=== PATIENT | female | born 1960 | race Caucasian/White ===

== ENCOUNTER 2023-05-29 08:29 | Observation (INO) ==
--- NOTE | 2023-05-12 09:18 | Anesthesiology Consultation ---
Date of Service May 12, 2023 Assessment & Plan (1) Encounter for pre-operative examination: - Check BSG AM DOS - Infectious disease screening: Per assessment on 05/12/23: No known infectious disease contacts or current infectious disease symptoms. No noted recent Covid positive test result. - Preop testing: No recent CBC/EKG. Will order CBC + EKG for DOS. Chart Review Chart Review: Acceptable Risk for Surgery (pending preop testing DOS) and Patient NOT seen in Pre Admission Testing History Surgery Operation Date: 05/29/23 09:50 Proposed Procedures p Robotic Supracevical Hysterectomy, Laparoscopic Sacrocolpopexy and Cystoscopy - Jonathan Gannon MD s Mid-Urethral Sling - Jonathan Gannon MD Height/Weight Height: 5 ft 4 in Weight: 63.503 kg Allergies Allergy/AdvReac Type Severity Reaction Status Date / Time bee venom protein (honey bee) Allergy Mild Rash Verified 05/12/23 07:35 ibuprofen AdvReac Mild Itching Verified 05/12/23 07:28 Medications Home Medications Medication Instructions Recorded Confirmed Last Taken ezetimibe 10 mg tablet 10 mg PO QPM 05/12/23 05/12/23 Unknown levothyroxine 88 mcg capsule 88 mcg PO QAM 05/12/23 05/12/23 Unknown Past Medical History Medical History Female bladder prolapse History of COVID-19 (~2022) x2- symptoms resolved Hx of colonic polyp Hyperlipemia Hypothyroidism Prediabetes Per [facility] PCP records Prolapsed uterus Past Surgical History Surgical History History of arthroplasty of right shoulder Hx of arthroscopy of right knee Hx of colonoscopy with polypectomy Social History Smoking Status: Former smoker Smoking cigarettes per day: 1 PP/Week Do You Dip or Chew Tobacco: No Smoking End Date: quit 40 years ago Hx Alcohol Use: Yes Alcohol type: wine alcohol intake frequency: a few times a month Hx Substance Use: No substance use type: does not use Testing Laboratory Results 04/25/23 SODIUM 143 POTASSIUM 4.6 CHLORIDE 106 CO2 27 BUN 17 CREATININE 0.8 GLUCOSE 92 HGBA1C 5.7% TSH 0.82 Stress Test Date: 05/30/20 Type: exercise The treadmill exercise test was normal. Was normal exercise heart rate and blood pressure response without symptoms or EKG evidence of ischemia. 8.3 METS. 95% MPHR.
--- NOTE | 2023-05-29 04:57 | History & Physical Report ---
Date of Service May 29, 2023 Assessment & Plan (1) Uterovaginal prolapse, incomplete: Plan: Patient is not interested in usp pessary therapy and desires robotic hysterectomy BSO, sacral colpopexy, cystoscopy and possible sling. Risks of infection, bleeding, injury, pain, mesh exposure, urinary retention, urinary incontinence, laparotomy were discussed. All questions answered. Informed consent signed. Present on Admission?: Yes Admission and Anticipated Discharge Date Admission Date: 05/29/2023 Anticipated date of discharge: 05/30/23 History of Present Illness Chief Complaint: Uterovaginal prolapse Primary Care Provider: NO PCP Angélica Hammer is a 62 year old woman who complains of a vaginal bulge for the past year. The bulge is more noticeable after being on her feet for long periods of time or when exercising. Allergies Allergy/AdvReac Type Severity Reaction Status Date / Time bee venom protein (honey bee) Allergy Mild Rash Verified 05/12/23 07:35 ibuprofen AdvReac Mild Itching Verified 05/12/23 07:28 Home Medications Medication Instructions Recorded Confirmed Type ezetimibe 10 mg tablet 10 mg PO QPM 05/12/23 05/12/23 History levothyroxine 88 mcg capsule 88 mcg PO QAM 05/12/23 05/12/23 History Past Med/Surg History Medical History (Updated 05/29/23 @ 04:55 by Jonathan Gannon MD) Uterovaginal prolapse, incomplete Prediabetes Per [facility] PCP records Prolapsed uterus Female bladder prolapse Hx of colonic polyp History of COVID-19 (~2022) x2- symptoms resolved Hyperlipemia Hypothyroidism Surgical History Hx of colonoscopy with polypectomy History of arthroplasty of right shoulder Hx of arthroscopy of right knee Social History Smoking Status: Former smoker Tobacco Type: Cigarettes Cigarettes Per Day: 1 PP/Week; Smoking End Date: quit 40 years ago; Second Hand Exposure: No; Do You Dip or Chew Tobacco: No; Tobacco Cessation Education Requested by Patient: No Hx Alcohol Use: Yes Alcohol type: wine Hx Substance Use: No Preferred Language: Finnish Communication Ability: Effective Medical Management Specialist Required: No Beliefs That Will Affect Care: None Current Living Situation: Spouse Other Information That Helps Us Care for You: No Feels Safe at Home: Yes Safety Concerns: Feels Safe At This Time Assistive Devices: Glasses Review of Systems Review of Systems: All systems reviewed & are unremarkable except as noted in HPI & below Physical Exam Constitutional: WD/WN, vitals as above Eyes: PERRL, conjunctivae normal, anicteric sclerae Neck: trachea midline, no thyromegaly Respiratory: normal respiratory effort, lungs clear to auscultation Cardiovascular: RRR, no murmur, no edema Gastrointestinal (Abdomen): normal bowel sounds, soft, nontender, no hepatosplenomegaly Musculoskeletal: no cyanosis or clubbing, extremities motor strength 5/5 Skin: no rashes, warm and dry Psychiatric: A+Ox3, euthymic affect Code Status & VTE Plan VTE Prophylaxis Plan VTE Prophylaxis will be ordered: Yes Reason for no VTE drug order: Treatment not indicated
[2023-05-29 09:21] LABS: Basophils # (auto) 0.05 K/uL (0.00-0.20); Basophils % (auto) 0.9 %; Eosinophils % (auto) 1.7 %; Hematocrit (blood only) 44.2 % (37.0-47.0); Hemoglobin 14.3 g/dl (12.0-16.0); Immature Granulocytes # (auto) 0.01 K/uL (0.01-0.20); Immature Granulocytes % (auto) 0.2 %; Lymphocytes # (auto) 2.29 K/uL (1.20-3.40); Lymphocytes % (auto) 39.1 %; Mean Corpuscular Hemoglobin 28.2 pg (25.0-34.0); Mean Corpuscular Hgb Conc 32.4 g/dL (32.0-36.0); Mean Corpuscular Volume 87.2 fL (80.0-100.0); Mean Platelet Volume 9.4 fL (9.4-12.4); Monocytes # (auto) 0.46 K/uL (0.11-0.59); Monocytes % (auto) 7.9 %; Neutrophils # (auto) 2.94 K/uL (1.40-6.50); Neutrophils % (auto) 50.2 %; Platelet Count 233 K/uL (130-400); RDW Coefficient of Variation 14.6 % (11.5-14.5); RDW Standard Deviation 46.5 fL (36.4-46.3); Red Blood Count 5.07 M/uL (4.20-5.40); White Blood Count 5.85 K/ul (4.8-10.8)
[2023-05-29] MEDS: LR 15ML/HR IV SCH (09:24)
[2023-05-29] MEDS ORDERED: MIDAZOLAM HCL 1 MG/ML 2ML VIAL ONE (09:24)
[2023-05-29] MEDS ORDERED: DEXAMETHASONE SOD INJ 4 MG/ML VIAL ONE (09:25)
[2023-05-29] MEDS ORDERED: LIDOCAINE 2% 2 ML VIAL/AMP(20MG/ML) INFIL ONE (09:25)
[2023-05-29] MEDS ORDERED: PROPOFOL IV EMULSION 10 MG/ML 20 ML VIAL IV ONE (09:25)
[2023-05-29] MEDS ORDERED: ROCURONIUM BROMIDE 10 MG/ML 5 ML VIAL IV ONE (09:25)
[2023-05-29] MEDS ORDERED: fentaNYL citrate PF 100 MCG/2 ML VIAL ONE (09:25)
[2023-05-29] MEDS ORDERED: ONDANSETRON INJ 2 MG/ML 2 ML VIAL ONE ×2 (09:25→09:42)
[2023-05-29] MEDS ORDERED: SUGAMMADEX SODIUM 200 MG/2 ML VIAL IV ONE (09:28)
[2023-05-29] MEDS ORDERED: fentaNYL citrate PF 100 MCG/2 ML VIAL IV PRN (10:02)
[2023-05-29] MEDS ORDERED: HYDROmorphone INJ 2 MG/ML SYR/VIAL IV PRN (10:02)
[2023-05-29] MEDS ORDERED: ePHEDrine sulfate 50 MG/ML AMP IV PRN (10:02)
[2023-05-29] MEDS ORDERED: PROMETHAZINE HCL 6.25 MG in SODIUM CHLORIDE 0.9% 50 ML IV PRN (10:02)
[2023-05-29] MEDS ORDERED: ONDANSETRON INJ 2 MG/ML 2 ML VIAL IV PRN ×2 (10:02→14:23)
[2023-05-29] MEDS ORDERED: ATROPINE SULFATE 0.1 MG/ML 10ML SYR IV PRN (10:02)
[2023-05-29] MEDS: metroNIDAZOLE 500 MG/100 ML BAG IV SCH ×2 (10:04→20:33)
[2023-05-29] MEDS ORDERED: ACETAMINOPHEN 1000 MG/100 ML IV IV ONE (10:57)
[2023-05-29] MEDS: ceFAZolin 2000MG 2,000 MG/15 ML SYR IV SCH ×2 (11:15→19:32)
[2023-05-29] MEDS: PREMARIN VAG CRM 14 APPLN/30 GM TUBE ONE (11:59)
[2023-05-29] MEDS: BUPIVACAINE 0.5 % 5 MG/1 ML MPF 30ML VIAL ONE (11:59)
[2023-05-29] MEDS: TISSEEL FIBRIN SEALANT 10ML TOP ONE (14:00)
--- NOTE | 2023-05-29 14:20 | Operative Report ---
Post Operative Report Pre & Post Diagnosis Operation Date: 05/29/23 10:10 Pre-Op Diagnosis: Uterovaginal Prolapse Post-Op Diagnosis: Uterovaginal Prolapse I identified the patient and participated in the time-out.: Yes Procedure Operation Date: 05/29/23 10:10 Actual Procedures p Robotic laparoscopic removal of the uterus, cervix, bilateral fallopian tubes and ovaries with Robotic SacroColpopexy and Cystoscopy(Not Applicable) - Jonathan Gannon MD Surgeon Jonathan Gannon MD Apprentice Embalmer Jessica Sanderson PA-C Estimated Blood Loss 150 Findings Consistent with Post-Op Diagnosis Grade 2 uterine prolapse, grade 2 cystocele. Normal appearing cervix, uterus, tubes and ovaries. Normal cystoscopy with excellent efflux of ureters bilaterally. Fluids crystalloid Specimens cervix,uterus, tubes and ovaries Drains Reyes catheter Anesthesia Type General Complications none Disposition Accompanied Patient To Recovery: Yes Disposition: Recovery Room Indications symptomatic uterovaginal prolapse Description of Procedure After Angélica Hammer was correctly identified in the preoperative area, the indications, risks, benefits, and alternative therapies were discussed in detail. All questions answered. Informed consent was obtained. The patient was then taken to the operating room and general anesthesia was given by anesthesia service. The patient was placed in Davi stirrups and was prepped and draped in the usual sterile fashion. Time out was performed. A Reyes catheter was placed. The cervix was serially dilated and a medium V-care uterine manipulator was applied. At the umbilicus, an 8 mm incision was made. An 8 mm robotic trocar with Optiview was advanced through the incision, through the fascia and inserted into the abdominal cavity under direct visualization. The abdomen was insufflated. On the left, two 8 mm trocars were placed. On the right, two 8 mm trocars were placed. Patient was placed in Trendelenburg position. The robot was docked. The right IP ligament was vessel sealed and transected. The right round ligament was vessel sealed and transected. The bladder flap was developed. The uterine arteries were skeletonized, vessel sealed, and transected. The left IP ligament was vessel sealed and transected. The left round ligament was vessel sealed and transected. The bladder flap was developed. The uterine arteries were skeletonized, vessel sealed, and transected. The colpotomy incision was made by following the edges of the cervical cup. The cervix, uterus, tubes, and ovaries were delivered out the vagina and sent to pathology as specimen. The vaginal cuff was closed with 0 V- lock delayed absorbable suture in two layers. Excellent hemostasis was noted. The bladder was dissected off the anterior vaginal wall for 6 cm. The rectum was dissected off the posterior vaginal wall for 8 cm. Peritoneum was incised over the sacral promontory and extended along the right lalo-colic gutter with excellent visualization of the ureter and sigmoid. There was some bleeding from the middle sacral artery that was controlled with bipolar cautery. Excellent hemostasis was noted. The Y-mesh was secured to the posterior vaginal wall with 6 interrupted sutures of CV-3 Raymond-nata suture. The anterior leaf of the Y-mesh was secured to the anterior vaginal wall with 6 interrupted sutures of CV-3 Raymond-nata. The tail end of the Y mesh was sutured to the anterior longitudinal ligament just below the sacral promontory with two interrupted sutures of CV-0 Raymond-nata sutures. Tisseel was applied to the pedicles, anterior and posterior vaginal guerra and the sacrum. The peritoneum was closed over the mesh with 2-0 V-lock suture. Excellent hemostasis was noted. The robot was undocked. The trocars were removed, the gas was released. The incisions were closed with 4-0 Monocryl in a subcuticular fashion and glued with Dermabond. Cystoscopy was performed which confirmed a normal bladder dome, trigone, and urethra. Excellent efflux of ureters were demonstrated bilaterally. With 250 ml of irrigation fluid in the bladder, a Crede maneuver was performed which did not demonstrate any SYLVESTER. The bladder was drained. A Reyes catheter was inserted. All sponge, lap, and needle counts were correct. Patient was awakened, extubated, and sent to recovery room in good condition. I attest to the content of the Intraoperative Record and any orders documented therein. Any exceptions are noted below. No qualified resident was available. Jessica Sanderson PA-C was needed for patient positioning, draping, retraction, irrigation, robot docking, robotic instrument exchange, incision closure.
[2023-05-29] MEDS ORDERED: IBUPROFEN 600 MG TAB PO PRN (14:23)
[2023-05-29] MEDS ORDERED: oxyCODONE/ACETAMINOPHEN 5mg/325mg TAB PO PRN ×2 (14:23)
[2023-05-29] MEDS: LIDOCAINE 1%/EPINEPHRINE 1:100,000 20 ML VIAL ONE (14:35)
--- NOTE | 2023-05-29 15:01 | Anesthesiology Progress Note ---
Date of Service May 29, 2023 Anesthesia Post Procedure Vital Signs Vital Signs: Temp Pulse Pulse Resp BP Pulse Ox O2 Del Method 05/29/23 14:55 51 L 12 86/54 L 93 Room Air 05/29/23 14:45 51 L 15 96/51 L 97 Oxymask 05/29/23 14:35 53 L 19 92/58 L 94 Oxymask 05/29/23 14:25 36 C L 54 L 14 106/60 93 Oxymask 05/29/23 09:05 36.6 C 64 20 141/80 H 100 Room Air O2 Flow Rate 05/29/23 14:55 05/29/23 14:45 5 05/29/23 14:35 5 05/29/23 14:25 5 05/29/23 09:05 Transfer of Care Handoff Completed per policy Notes Mental Status: alert / awake / arousable and participated in evaluation Patient Amnestic to Procedure: Yes Nausea / Vomiting: adequately controlled Pain: adequately controlled Airway Patency, RR, SpO2: stable & adequate BP & HR: stable & adequate Hydration State: stable & adequate Anesthetic Complications: no major complications apparent
[2023-05-29] MEDS: ARTIFICIAL TEARS OPB PRN (19:07)
--- OUTSIDE RECORDS SUMMARY | 2023-05-30 02:53 | External Medical Summary ---
Author Name Unknown Address Unknown Organization [id number]:[facility] [place] [address] [facility] [id number] Laboratory Report Ordering Provider Test Date Status BATSHEVA HERNANDEZ 04/25/2023 08:17:03 Final Observation Date Value Abnormality Reference (Units ) Status HbA1C 04/25/2023 08:17:03 5.7 Above high normal 4. 0-5.6 (%) Final The use of HbA1c to monitor glycemic status is based on normal hemoglobin and HbA composition. This test should not be used in patients with abnormal hemoglobin that affects the half life of the red blood cell or the in vivo glycation rates. Glucose, estimated average 04/25/2023 08:17:03 117 <126 (mg/dL) Final Performing Location [facility] [place] [address] [facility] [address]
--- OUTSIDE RECORDS SUMMARY | 2023-05-30 02:53 | External Medical Summary | Summary of Care ---
Author Name Unknown Organization [facility] Address [address] [place] [address] Phone [phone] Care Team Providers Care Cuff Folder Name Role Phone Sylvester Arce MD Primary Care Provider [phone] Reason for Visit * Reason Comments Outpatient Testing Encounter Details Date Type Department Care Team (Late st Contact Info) Description 04/25/2023 8:20 AM EDT Laboratory Laboratory, [address] [address] [place], Lab [address] [place] [id number] Hypothyroidism; Hypertension goal BP (blood pressure) < 140/90; DYSLIPIDEMIA, GOAL TO BE DETERMINED; Prediabetes Allergies Active Allergy Reactions Criticality Noted Date Comments Bee Stings Edema airway High 12/24/2009 Ibuprofen 07/29/2004 itching Ragweed Wheezing 12/24/2009 documented as of this encounter (statuses as of 04/25/2023) Medications Medication Sig Dispensed Refills Start Date End Date Status EpiPen 2-Josiah 0.3 MG/0.3ML Injection Solution Auto-injector Inject into a large muscle. 0 Active Hydrocortisone (Perianal) 2.5 % External Cream (Anusol-HC) Administer into the rectum 2 times a day. 30 g 1 07/14/2022 Active Additional Information Patient not taking.Reported on 01/22/2023 TobraDex 0.3-0.1 % Ophthalmic Ointment (Tobramycin-Dexamet hasone) Instill into the left eye 3 times a day. 0 Active Premarin 0.625 MG/GM Vaginal Cream (Estrogens Conjugated)Indicati ons:Vaginal atrophy Administer 1 g into the vagina once a day on Thursday, Thursday, and Thursday only. At bedtime 42.5 g 6 11/05/2022 Active Pravastatin Sodium 40 MG Oral Tablet (Pravachol) TAKE 1 TABLET BY MOUTH EVERY DAY WITH DINNER 90 Tablet 1 02/03/2023 Active Levothyroxine Sodium 88 MCG Oral Tablet (Levoxyl) TAKE 1 TABLET BY MOUTH EVERY DAY ON AN EMPTY STOMACH 90 Tablet 0 02/10/2023 Active Omeprazole 20 MG Oral Capsule Delayed Release (PriLOSEC)Indicatio ns:Gastroesophageal reflux disease, unspecified whether esophagitis present Take 1 Capsule by mouth in the morning. 1 hour before the first meal of the day. 90 Capsule 3 02/16/2023 Active documented as of this encounter (statuses as of 04/25/2023) Active Problems Problem Noted Date Diagnosed Date Synovitis of left knee 04/03/2022 DJD (degenerative joint disease) 04/03/2022 Gastroesophageal reflux disease 04/03/2022 Hip pain, right 04/03/2022 Impingement syndrome of right shoulder Instability of right knee joint 04/03/2022 Osteoarthritis of right hip 04/03/2022 Tear of lateral meniscus of right knee, current 04/03/2022 Prediabetes 04/03/2022 Active advance directive 05/12/2017 Varicose veins of lower extremity 01/15/2017 Vitamin D deficiency 11/04/2016 Generalized osteoarthritis 10/30/2014 Hypothyroidism 10/30/2014 Closed dislocation of patella 07/16/2009 DYSLIPIDEMIA, GOAL TO BE DETERMINED 01/24/2009 Overview: Per Lipid Taxonomy. Allergic rhinitis Overview: summer/fall ROUTINE MEDICAL EXAM Tubal ligation status Overview: Raynaud's syndrome documented as of this encounter (statuses as of 04/25/2023) Resolved Problems Problem Noted Date Diagnosed Date Resolved Date PURE HYPERCHOLESTEROLEM 01/09 Overview: Per Lipid Taxonomy. documented as of this encounter (statuses as of 04/25/2023) Social History Tobacco Use Types Packs/Day Years Used Date Smoking Tobacco: Former Cigarettes 5 4 0 03/12/1976 - 03/12/1980 Smokeless Tobacco: Never Alcohol Use Standard Drinks/Week Comments Yes 0 (1 standard drink = 0.6 oz pur e alcohol) occasionally PHQ-2 Answer Date Recorded PHQ Adult Total Score 0 04/03/2022 Hunger Vital Sign Answer Date Recorded Within the past 12 months, y ou worried that your food would run out before you got the money to buy more. Never true 07/15/19 Within the past 12 months, t he food you bought just didn't last and you didn't have money to get more. Never true 07/14/2022 Sex and Gender Information Value Date Recorded Sex Assigned at Female 03/10/2022 3:26 PM EST Gender Identity Female 03/10/2022 3:26 PM EST Sexual Orientation Straight 04/03/2022 9: 38 AM EST Job Start Date Occupation Industry Not on file Not on file Not on file documented as of this encounter Plan of Treatment Upcoming Encounters Date Type Department Care Team (Late st Contact Info) Description 04/28/2023 1:20 PM EDT Office Visit [facility] [address] [place] [address] Eugenia Santillan CRNP [address] [place] [phone] 05/26/2023 11:05 AM EDT Office Visit Urogynecology [facility] [address] [place] [address] Pau Fernandes CRNP [address] [place] [phone] Nurse Aimee Underwood [address] [facility] [address] 06/10/2023 8:00 AM EDT Telemedicine Urogynecology [address] [place] [address] Jonathan Gannon MD [address] [place] [address] 07/01/2023 1:30 PM EDT Office Visit [facility]rogynecology [facility] [address] [place] [address] Jonathan Gannon MD [address] [place] [address] Health Maintenance Due Date Last Done Comments HIV Screening 1973 Hepatitis C Screening 1976 DTaP,Tdap,and Td Vaccines (1 - Tdap) 1977 Cologuard 11/17/2003 Sigmoidoscopy 11/17/2003 Zoster Vaccines (1 of 2) 2008 Fecal Occult Blood Test 12/24/2010 12/25/19 10, 07/26/2008, 05/24/2007 COVID-19 Vaccine ( - 2022- season) 2022 Influenza Vaccine (FLU shot) (#1) 2022 HbA1c 03/25/2023 03/25/2022 TSH 03/25/2023 03/25/2022, 0803/2021, 03/06/2021, Additional history exists Depression Screening 04/03/2023 04/03/2022 Mammogram 03/12/2024 03/12/2023, 02/09, 03/12/2020, Additional history exists Pap Smear 07/14/2025 07/14/2022, 04/10, 12/24/2009, Additional history exists Lipid Panel 03/25/2027 03/25/2022, 11/11, 09/10/2021, Additional history exists Cervical Cancer Screening 07/15/2027 HPV/Co-Test 07/15/2027 07/14/2022 Colonoscopy 07/02/2032 07/02/2022, 07/02/2022 Colorectal Cancer Screening 07/02/2032 GARDASIL-HPV IMMUNIZATION SERIES Aged Out No longer eligible based on patient's age to complete this topic Hepatitis B Aged Out No longer eligi ble based on patient's age to complete this topic MENINGOCOCCAL (MENACTRA/MENVEO) Aged Out No longer eligible based on patient's age to complete this topic Pneumococcal Vaccine: Pediatrics (0 to 5 Years) and At-Risk Patients (6 to 64 Years) Aged Out No longer eligible based on patient's age to complete this topic documented as of this encounter Medical Devices Not on filedocumented as of this encounter Visit Diagnoses Diagnosis Hypothyroidism Unspecified hypothyroidism Hypertension goal BP (blood pressure) < 140/90 Unspecified essential hypertension DYSLIPIDEMIA, GOAL TO BE DETERMINED Other and unspecified hyperlipidemia Prediabetes Other abnormal glucose documented in this encounter Care Teams Cuff Folder Relationship Specialty Start Date End Date Sylvester Arce MD [address] [place] [id number] PCP - General Family Medicine 04/03/22 documented as of this encounter
--- OUTSIDE RECORDS SUMMARY | 2023-05-30 02:53 | External Medical Summary | Summary of Care ---
Author Name Unknown Organization [facility] Address [address] [place] [address] Phone [phone] Care Team Providers Care Assistant Grocery Store Manager Name Role Phone Sylvester Arce MD Primary Care Provider [phone] Reason for Visit * Reason Onset Date Comments Health Maintenance 05/04/2023 Encounter Details Date Type Department Care Team (Late st Contact Info) Description 05/04/2023 Telephone [facility] [address] [place], [place] [phone] Sylvester Arce MD [address] [place] [place], [place] [phone] Health Maintenance Allergies Active Allergy Reactions Criticality Noted Date Comments Bee Stings Edema airway High 12/24/2009 Ibuprofen 07/29/2004 itching Ragweed Wheezing 12/24/2009 documented as of this encounter (statuses as of 05/04/2023) Medications Medication Sig Dispensed Refills Start Date End Date Status EpiPen 2-Josiah 0.3 MG/0.3ML Injection Solution Auto-injector Inject into a large muscle. 0 Active Premarin 0.625 MG/GM Vaginal Cream (Estrogens Conjugated)Indication s:Vaginal atrophy Administer 1 g into the vagina once a day on Thursday, Thursday, and Thursday only. At bedtime 42.5 g 6 11/05/2022 Active Levothyroxine Sodium 88 MCG Oral Tablet (Levoxyl) TAKE 1 TABLET BY MOUTH EVERY DAY ON AN EMPTY STOMACH 90 Tablet 0 02/10/2023 Active Omeprazole 20 MG Oral Capsule Delayed Release (PriLOSEC)Indications :Gastroesophageal reflux disease, unspecified whether esophagitis present Take 1 Capsule by mouth in the morning. 1 hour before the first meal of the day. 90 Capsule 3 02/16/2023 Active Ezetimibe 10 MG Oral Tablet (Zetia)Indications:Ro utine history and physical examination of adult,Mixed hyperlipidemia Take 1 Tablet by mouth every afternoon. 90 Tablet 3 04/28/2023 Active documented as of this encounter (statuses as of 05/04/2023) Active Problems Problem Noted Date Diagnosed Date [...] as of this encounter (statuses as of 05/04/2023) Resolved Problems Problem Noted Date Diagnosed Date Resolved Date PURE HYPERCHOLESTEROLEM 01/09 Overview: Per Lipid Taxonomy. documented as of this encounter (statuses as of 05/04/2023) Social History Tobacco Use Types Packs/Day Years [...] on file documented as of this encounter Miscellaneous Notes * Telephone Encounter - Erica Palomares LPN - 05/04/2023 2:10 PM EDT Care Gaps Comprehensive Care Outreach Last Office/Telemedicine Visit: 04/28/2023 (in office), Visit date not found (telemedicine) Next Office Visit: Visit date not found 11/17/23 amigo Hemoglobin AIC Results: Lab Results Component Value Date/Time HEMOGLOBIN A1C - [facility] 5.7 (H) 04/25/2023 08:17 AM HEMOGLOBIN A1C - [facility] 5.8 (H) 03/25/2022 10:11 AM BP Readings from Last 1 Encounters: 04/28/23 122/74 Reviewed Health Maintenance below: Health Maintenance Topic Date Due Care Gap Outreach Action Taken: Outreach not indicated documented in this encounter Plan of Treatment Upcoming Encounters Date Type Department Care Team (Late st Contact Info) Description 05/26/2023 11:05 AM EDT [facility] [address] [facility] [address] Pau Fernandes CRNP [address] [place] [phone] Nurse Aimee Underwood [address] [facility] [place] [address] 06/10/2023 8:00 AM EDT Telemedicine Urogynecology [facility] [address] [place] [address] Jonathan Gannon MD [address] [place] [address] 07/01/2023 1:30 PM EDT Office Visit [facility]gynecology [facility] [address] [facility] [place] [address] Jonathan Gannon MD [address] [place] [address] 11/17/2023 10:00 AM EDT Office Visit [address] [address] Eugenia Santillan CRNP [address] [place] [phone] Health Maintenance Due Date Last Done Comments HIV Screening 1975 Hepatitis C Screening 1976 DTaP,Tdap,and Td Vaccines (1 - Tdap) 1977 Cologuard 11/17/2003 Sigmoidoscopy 11/17/2003 Zoster Vaccines (1 of 2) 2008 Fecal Occult Blood Test 12/24/2010 12/25/19 10, 07/26/2008, 05/24/2007 COVID-19 Vaccine ( - 2022- season) 2022 Influenza Vaccine (FLU shot) (#1) 2022 Depression Screening 04/03/2023 04/03/2022 Mammogram 03/12/2024 03/12/2023, 02/09, 03/12/2020, Additional history exists HbA1c 04/24/2024 04/25/2023, 03/25/2022 TSH 04/24/2024 04/25/2023, 03/12, 09/10/2021, Additional history exists Pap Smear 07/14/2025 07/14/2022, 04/10, 12/24/2009, Additional history exists Cervical Cancer Screening 07/15/2027 HPV/Co-Test 07/15/2027 07/14/2022 Lipid Panel 04/24/2028 04/25/2023, 03/12, 12/09/2021, Additional history exists Colonoscopy 07/02/2032 07/02/2022, 07/02/2022 Colorectal Cancer Screening [...] Not on filedocumented as of this encounter Care Teams Assistant Grocery Store Manager Relationship Specialty Start Date End Date Sylvester Arce MD [address] [place] [phone] PCP - General Family Medicine 04/03/22 documented as of this encounter
--- OUTSIDE RECORDS SUMMARY | 2023-05-30 02:53 | External Medical Summary ---
Author Name Unknown Address Unknown Organization [id number]:[facility] [address] [place] [address] Laboratory Report Ordering Provider Test Date Status BATSHEVA HERNANDEZ 04/25/2023 08:17:03 Final Observation Date Value Abnormality Reference (Units ) Status BUN 04/25/2023 08:17:03 17 6-20 (mg/dL) Final Creatinine 04/25/2023 08:17:03 0.8 0.5-1.0 (mg/dL) Final Glomerular filtration rate/1.73 sq M.predicted [Volume Rate/Area] in Serum, Plasma or Blood by Creatinine-based formula (CKD-EPI) 04/25/2023 08:17:03 86 >=60 (mL/min) Final eGFR is calculated based on the CKD-EPI 2020 equation SODIUM 04/25/2023 08:17:03 143 135-146 (m mol/L) Final Potassium 04/25/2023 08:17:03 4.6 3.5-5.1 (m mol/L) Final Cl 04/25/2023 08:17:03 106 98-107 (mm ol/L) Final CO2 04/25/2023 08:17:03 27 22-32 (mmo l/L) Final Anion gap 04/25/2023 08:17:03 10 7-15 (mmol /L) Final Glucose 04/25/2023 08:17:03 92 70-120 (mg /dL) Final Calcium 04/25/2023 08:17:03 9.2 8.4-10.2 ( mg/dL) Final Performing Location [facility]ORY [address] [place] [address]
--- OUTSIDE RECORDS SUMMARY | 2023-05-30 02:53 | External Medical Summary | Summary of Care ---
Author Name Unknown Organization [facility] Address [address] [place] [address] Phone [phone] Care Team Providers Care Demand Planning Analyst Name Role Phone Sylvester Herman MD Primary Care Provider [phone] Reason for Visit * Reason Comments eRx-Medication Refill Encounter Details Date Type Department Care Team (Late st Contact Info) Description 05/11/2023 Refill [facility] [address], [place] [phone] Sylvester Herman MD [address], [place] [phone] Allergies Active Allergy Reactions Criticality Noted Date Comments Bee Stings Edema airway High 12/24/2009 Ibuprofen 07/29/2004 itching Ragweed Wheezing 12/24/2009 documented as of this encounter (statuses as of 05/11/2023) Medications Medication Sig Dispensed Refills Start Date End Date Status EpiPen 2-Josiah 0.3 MG/0.3ML Injection Solution Auto-injector Inject into a large muscle. 0 Active Premarin 0.625 MG/GM Vaginal Cream (Estrogens Conjugated)Indicati ons:Vaginal atrophy Administer 1 g into the vagina once a day on Thursday, Thursday, and Thursday only. At bedtime 42.5 g 6 3 Active Omeprazole 20 MG Oral Capsule Delayed Release (PriLOSEC)Indicatio ns:Gastroesophageal reflux disease, unspecified whether esophagitis present Take 1 Capsule by mouth in the morning. 1 hour before the first meal of the day. 90 Capsule 3 4 Active Ezetimibe 10 MG Oral Tablet (Zetia)Indications: Routine history and physical examination of adult,Mixed hyperlipidemia Take 1 Tablet by mouth every afternoon. 90 Tablet 3 4 Active Levothyroxine Sodium 88 MCG Oral Tablet (Levoxyl) TAKE 1 TABLET BY MOUTH EVERY DAY ON AN EMPTY STOMACH 90 Tablet 3 4 Active Levothyroxine Sodium 88 MCG Oral Tablet (Levoxyl) TAKE 1 TABLET BY MOUTH EVERY DAY ON AN EMPTY STOMACH 90 Tablet 0 4 05/11/19 24 Discontinued documented as of this encounter (statuses as of 05/11/2023) Active Problems Problem Noted Date Diagnosed Date Synovitis of left knee 04/03/2022 DJD (degenerative joint disease) 04/03/2022 Gastroesophageal reflux disease 04/03/2022 Hip pain, right 04/03/2022 Impingement syndrome of right shoulder 3 Instability of right knee joint 04/03/2022 Osteoarthritis [...] as of this encounter (statuses as of 05/11/2023) Resolved Problems Problem Noted Date Diagnosed Date Resolved Date PURE HYPERCHOLESTEROLEM 01/09 Overview: Per Lipid Taxonomy. documented as of this encounter (statuses as of 05/11/2023) Social History Tobacco Use Types Packs/Day Years [...] encounter Miscellaneous Notes * Telephone Encounter - Sondra Barber [facility] - 05/11/2023 5:03 PM EDTSigned Prescriptions: Disp Refills Levothyroxine Sodium 88 MCG Oral Tablet (L*90 Tab*3 Sig: TAKE 1 TABLET BY MOUTH EVERY DAY ON AN EMPTY STOMACHAuthorizing Provider: Toya HERMAN User: SONDRA BARBER documented in this encounter Plan of Treatment Upcoming Encounters Date Type Department Care Team (Late st Contact Info) Description 05/26/2023 11:05 AM EDT Office Visit Urogynecology [facility] [address] [place] [address] Pau Fernandes CRNP [address] [place] [phone] Nurse Aimee Underwood [address] [place] [address] 06/10/2023 8:00 AM EDT Telemedicine Urogynecology [facility] [address] [place] [address] Jonathan Gannon MD [address] [place] [address] 07/01/2023 1:30 PM EDT Office Visit Urogynecology [facility] [address] [place] [address] Jonathan Gannon MD [address] [place] [address] 11/17/2023 10:00 AM EDT Office Visit [address] [address] Eugenia Santillan CRNP [address] [place] [phone] Health Maintenance Due Date Last Done Comments HIV Screening 1973 Hepatitis C Screening 1976 DTaP,Tdap,and Td Vaccines (1 - Tdap) 1977 Cologuard 11/17/2003 Sigmoidoscopy 11/17/2003 Zoster Vaccines (1 of 2) 2008 Fecal Occult Blood Test 12/24/2010 12/25/19 10, 07/26/2008, 05/24/2007 COVID-19 Vaccine ( - 2022- season) 2022 Depression Screening 04/03/2023 04/03/2022 Influenza Vaccine (FLU shot) (Season Ended) 2023 Mammogram 03/12/2024 03/12/2023, 02/09, 03/12/2020, Additional history [...] filedocumented as of this encounter Care Teams Demand Planning Analyst Relationship Specialty Start Date End Date Sylvester Herman MD [address] [place] [id number] PCP - General Family Medicine 04/03/22 documented as of this encounter
--- OUTSIDE RECORDS SUMMARY | 2023-05-30 02:53 | External Medical Summary | Summary of Care ---
Author Name Unknown Organization [facility] Address [address] [place] [address] Phone [phone] Care Team Providers Care Pit Crane Operator Name Role Phone Sylvester Arce MD Primary Care Provider [phone] Reason for Visit * Reason Onset Date Comments Surgery 04/22/2023 Encounter Details Date Type Department Care Team (Late st Contact Info) Description 04/22/2023 Telephone Urogynecology [facility] [address] [place] [address] Jonathan Gannon MD [address] [place] [address] Surgery Allergies Active Allergy Reactions Criticality Noted Date Comments Bee Stings Edema airway High 12/24/2009 Ibuprofen 07/29/2004 itching Ragweed Wheezing 12/24/2009 documented as of this encounter (statuses as of 04/22/2023) Medications Medication Sig Dispensed Refills Start Date [...] as of this encounter (statuses as of 04/22/2023) Active Problems Problem Noted Date Diagnosed Date [...] as of this encounter (statuses as of 04/22/2023) Resolved Problems Problem Noted Date Diagnosed Date Resolved Date PURE HYPERCHOLESTEROLEM 01/09 Overview: Per Lipid Taxonomy. documented as of this encounter (statuses as of 04/22/2023) Social History Tobacco Use Types Packs/Day Years [...] encounter Miscellaneous Notes * Telephone Encounter - Luz Islas [facility] - 04/22/2023 11:20 AM EDT Pt returning nurses call plans on getting preoperative labs for 05/29/2023 [facility] surgery [facility] Pt is to get BMP, CBC and TSC. Since is having surgery off site - it being told her TSC needs to bedrawn at [facility] - pt asking if all other labs (she has labs for PCP too TSH, Hemoglobin, BMP, Lipid etc) and planned on getting it done on 04/30/2023. Placed call on hold to clarify. Spoke with a provider - pt is ok to get BMP and CBC at [facility] but will need to get TSC at [facility] - since lives further away from where she is having surgery - can do TSC and ABO/RH morning of surgery Routing to Dr Teressa SIRAEL documented in this encounter Plan of Treatment Upcoming Encounters Date Type Department Care Team (Late st Contact Info) Description 04/24/2023 8:20 AM EDT Laboratory Laboratory, [place] [address] [place] [phone] [place] [address], [place] [phone] 04/28/2023 1:20 PM EDT Office Visit Family [facility] [place] [address], [place] [phone] Eugenia Santillan CRNP [address] [place] [phone] 05/26/2023 11:05 AM EDT Office Visit Urogynecology [facility] [address] [place] [address] Pau Fernandes CRNP [address] [place] [phone] Nurse Aimee Underwood [address] [place] [address] 06/10/2023 8:00 AM EDT Telemedicine Urogynecology [facility] [address] [facility] [place] [address] Jonathan Gannon MD [address] [place] [address] 07/01/2023 1:30 PM EDT Office Visit Urogynecology [facility] [address] [place] [address] Jonathan Gannon MD [address] [place], [place] [phone] Health Maintenance Due Date Last Done Comments HIV Screening 1975 Hepatitis C Screening 1976 DTaP,Tdap,and Td Vaccines (1 - Tdap) 1977 Cologuard 11/17/2003 Sigmoidoscopy 11/17/2003 Zoster Vaccines (1 of 2) 2008 Fecal Occult Blood Test 12/24/2010 12/25/19 10, 07/26/2008, 05/24/2007 COVID-19 Vaccine ( season) 2022 Influenza Vaccine (FLU shot) (#1) 2022 HbA1c 03/25/2023 03/25/2022 TSH 03/25/2023 03/25/2022, 08/0 03/2021, 03/06/2021, Additional history exists Depression Screening 04/03/2023 [...] filedocumented as of this encounter Care Teams Pit Crane Operator Relationship Specialty Start Date End Date Sylvester Arce MD [address] [place] [phone] PCP - General Family Medicine 04/03/22 documented as of this encounter
--- OUTSIDE RECORDS SUMMARY | 2023-05-30 02:53 | External Medical Summary ---
Author Name Unknown Address Unknown Organization [id number]:[facility] - [address] [facility] [address] Laboratory Report Ordering Provider Test Date Status BATSHEVA HERNANDEZ 04/25/2023 08:17:03 Final Observation Date Value Abnormality Reference (Units ) Status Triglyceride 04/25/2023 08:17:03 94 <=174 ( mg/dL) Final Triglyceride Reference Range s (mg/dL):
<150 Acceptable
150-174 Borderline high
175-499 High
>=500 Very high Cholesterol 04/25/2023 08:17:03 244 Above high normal <200 (mg/dL) Final Total Cholesterol Reference Ranges (mg/dL):
<200 Desirable
200-239 Borderline high
>=240 High HDL 04/25/2023 08:17:03 94 >49 (mg/dL ) Final HDL Cholesterol Reference Ra nges (mg/dL):
>=60 High (Desirable)
<50 Low (Undesirable) For Females
<40 Low (Undesirable) For Males NON-HDL CHOLESTEROL 04/25/2023 08:17:03 150 <=159 (mg/dL) Final Non-HDL Cholesterol Referenc e Range (mg/dL):
<100 Target level for high risk ASCVD patient
<130 Optimal for general population
130-159 Near optimal for general population
160-189 Borderline High
190-219 High
>=220 Very High LDL, (calculated) 04/25/2023 08:17:03 131 Above high n ormal <=129 (mg/dL) Final LDL Cholesterol Reference Ra nges (mg/dL):
<70 Target level for high risk ASCVD patient
<100 Optimal for general population
100-129 Near optimal for general population
130-159 Borderline high
160-189 High
>=190 Very high Performing Location LAB[facility]ATORY [facility] - [address] [facility] [address]
--- OUTSIDE RECORDS SUMMARY | 2023-05-30 02:53 | External Medical Summary | Summary of Care ---
Author Name Unknown Organization [facility] Address [address] [place] [address] Phone [phone] Care Team Providers Care Insurance Auditor Name Role Phone Sylvester Arce MD Primary Care Provider [phone] Reason for Visit * Reason Comments Physical-Exam 1 yr return , labs c ompleted Encounter Details Date Type Department Care Team (Latest Contact Info) Description 04/28/2023 1:20 PM EDT Office Visit [facility] [address], [place] [id number] Eugenia Santillan [address] [phone] Routine history and physical examination of adult*; Mixed hyperlipidemia; Prediabetes; Acquired hypothyroidism Allergies Active Allergy Reactions Criticality Noted Date Comments Bee Stings Edema airway High 12/24/2009 Ibuprofen 07/29/2004 itching Ragweed Wheezing 12/24/2009 documented as of this encounter (statuses as of 04/28/2023) Medications Medication Sig Dispensed Refills Start Date End Date Status EpiPen 2-Josiah 0.3 MG/0.3ML Injection Solution Auto-injector Inject into a large muscle. 0 Active Premarin 0.625 MG/GM Vaginal Cream (Estrogens Conjugated)Indicat ions:Vaginal atrophy Administer 1 g into the vagina once a day on Thursday, Thursday, and Thursday only. At bedtime 42.5 g 6 3 Active Levothyroxine Sodium 88 MCG Oral Tablet (Levoxyl) TAKE 1 TABLET BY MOUTH EVERY DAY ON AN EMPTY STOMACH 90 Tablet 0 4 Active Omeprazole 20 MG Oral Capsule Delayed Release (PriLOSEC)Indicati ons:Gastroesophage al reflux disease, unspecified whether esophagitis present Take 1 Capsule by mouth in the morning. 1 hour before the first meal of the day. 90 Capsule 3 4 Active Ezetimibe 10 MG Oral Tablet (Zetia)Indications :Routine history and physical examination of adult,Mixed hyperlipidemia Take 1 Tablet by mouth every afternoon. 90 Tablet 3 4 Active Hydrocortisone (Perianal) 2.5 % External Cream (Anusol-HC) Administer into the rectum 2 times a day. 30 g 1 3 04/28/19 24 Discontinued(Me dication List Clean Up) TobraDex 0.3-0.1 % Ophthalmic Ointment (Tobramycin-Dexame thasone) Instill into the left eye 3 times a day. 0 04/28/19 24 Discontinued(Me dication List Clean Up) Pravastatin Sodium 40 MG Oral Tablet (Pravachol) TAKE 1 TABLET BY MOUTH EVERY DAY WITH DINNER 90 Tablet 1 3 04/28/19 24 Discontinued(Me dication List Clean Up) Ezetimibe 10 MG Oral Tablet (Zetia)Indications :Mixed hyperlipidemia Take 1 Tablet by mouth in the morning. 90 Tablet 3 4 04/28/19 24 Discontinued documented as of this encounter (statuses as of 04/28/2023) Active Problems Problem Noted Date Diagnosed Date [...] as of this encounter (statuses as of 04/28/2023) Resolved Problems Problem Noted Date Diagnosed Date Resolved Date PURE HYPERCHOLESTEROLEM 01/09 Overview: Per Lipid Taxonomy. documented as of this encounter (statuses as of 04/28/2023) Social History Tobacco Use Types Packs/Day Years [...] on file documented as of this encounter Last Filed Vital Signs Vital Sign Reading Time Taken Comments Blood Pressure 122/74 04/28/2023 1:13 PM EDT Pulse 74 04/28/2023 1:13 PM EDT Temperature 36.2 C (97.2 F) 04/28/2023 1:13 PM ED T Respiratory Rate 16 04/28/2023 1:13 PM EDT Oxygen Saturation 99% 04/28/2023 1:13 PM EDT Inhaled Oxygen Concentration - - Weight 65.3 kg (144 lb) 04/28/2023 1:13 PM EDT Height 162.6 cm (5' 4") 04/28/2023 1:13 PM EDT Body Mass Index 24.72 04/28/2023 1:13 PM EDT documented in this encounter Progress Notes * Eugenia Santillan CRNP - 04/28/2023 1:48 PM EDT SUBJECTIVE: Angélica Hammer is a 62 year old female that presents for Physical-Exam (1 yr return , labs completed) Last appt: 01/22/2023 Pt presents today for routine follow up, last seen 01/22/2023; Recent Events 14 months ago OPHTHALMOLOGY RAFY RODRIGUEZ with Dr. Suazo (Nonintractable headache, unspecified chronicity pattern, unspecified headache type) FAM PRAC RAFY RODRIGUEZ with YOHAN Lassiter (New onset headache) Here for routine wellness examination. Has questions about her statin medication. Has been getting increased leg cramps - decreased dose to 30mg a day. She would like to discontinue this medication completely. She has been on the 30mg dose for about 2 weeks. Caffeine: 1 cup coffee Smoking: None Vaping: None Etoh: Wine - occasional Drug Use: No Sexually Active: Yes Concern for STD/STI: No Occupation: was warehouse clerk, elder care - overnight care. Health Maintenance Topic Date Due HIV Screening Never done Hepatitis C Screening Never done DTaP,Tdap,and Td Vaccines (1 - Tdap) Never done Zoster Vaccines (1 of 2) Never done Influenza Vaccine (FLU shot) (1) Never done COVID-19 Vaccine ( - 2022- season) Never done Depression Screening 04/03/2023 Mammogram 03/12/2024 HbA1c 04/24/2024 TSH 04/24/2024 Cervical Cancer Screening 07/15/2027 Lipid Panel 04/24/2028 Colorectal Cancer Screening 07/02/2032 Hepatitis B Aged Out MENINGOCOCCAL (MENACTRA/MENVEO) Aged Out GARDASIL-HPV IMMUNIZATION SERIES Aged Out Pneumococcal Vaccine: Pediatrics (0 to 5 Years) and At-Risk Patients (6 to 64 Years) Aged Out Patient Active Problem List Diagnosis Code Allergic rhinitis J30.9 ROUTINE MEDICAL EXAM Z00.00 Tubal ligation status Z98.51 Raynaud's syndrome I73.00 Active advance directive Z78.9 DYSLIPIDEMIA, GOAL TO BE DETERMINED E78.5 Closed dislocation of patella S83.006A Synovitis of left knee M65.9 DJD (degenerative joint disease) M19.90 Gastroesophageal reflux disease K21.9 Generalized osteoarthritis M15.9 Hip pain, right M25.551 Hypothyroidism E03.9 Impingement syndrome of right shoulder M75.41 Instability of right knee joint M25.361 Osteoarthritis of right hip M16.11 Tear of lateral meniscus of right knee, current S83.281A Varicose veins of lower extremity I83.90 Vitamin D deficiency E55.9 Prediabetes R73.03 Current Outpatient Medications Medication Sig Dispense Refill Premarin 0.625 MG/GM Vaginal Cream (Estrogens Conjugated) Administer 1 g into the vagina once a dayon Thursday, Thursday, and Thursday only. At bedtime 42.5 g 6 Pravastatin Sodium 40 MG Oral Tablet (Pravachol) TAKE 1 TABLET BY MOUTH EVERY DAY WITH DINNER 90 Tablet 1 Levothyroxine Sodium 88 MCG Oral Tablet (Levoxyl) TAKE 1 TABLET BY MOUTH EVERY DAY ON AN EMPTY STOMACH 90 Tablet 0 EpiPen 2-Josiah 0.3 MG/0.3ML Injection Solution Auto-injector Inject into a large muscle. Hydrocortisone (Perianal) 2.5 % External Cream (Anusol-HC) Administer into the rectum 2 times a day. (Patient not taking: Reported on 01/22/2023) 30 g 1 TobraDex 0.3-0.1 % Ophthalmic Ointment (Tobramycin-Dexamethasone) Instill into the left eye 3 timesa day. (Patient not taking: Reported on 10/15/2022) Omeprazole 20 MG Oral Capsule Delayed Release (PriLOSEC) Take 1 Capsule by mouth in the morning. 1 hour before the first meal of the day. 90 Capsule 3 No current facility-administered medications for this visit. Review of patient's allergies indicates: Allergen Reactions Bee Stings Edema airway Ibuprofen itching Ragweed Wheezing OBJECTIVE: Estimated body mass index is 24.72 kg/m as calculated from the following: Height as of this encounter: 1.626 m (5' 4"). Weight as of this encounter: 65.3 kg (144 lb). Vitals: 04/28/23 1313 Temp: 36.2 C (97.2 F) Pulse: 74 Resp: 16 SpO2: 99% BP: 122/74 BMI: 24.71 BP Readings from Last 3 Encounters: 04/28/23 122/74 01/22/23 120/70 07/14/22 118/76 Wt Readings from Last 3 Encounters: 04/28/23 65.3 kg (144 lb) 01/22/23 66 kg (145 lb 9.6 oz) 10/15/22 63.5 kg (140 lb) Physical Exam Vitals and nursing note reviewed. Constitutional: General: She is not in acute distress. Appearance: Normal appearance. She is not ill-appearing, toxic-appearing or diaphoretic. HENT: Head: Normocephalic and atraumatic. Right Ear: Ear canal and external ear normal. Left Ear: Ear canal and external ear normal. Nose: Nose normal. Mouth/Throat: Mouth: Mucous membranes are moist. Eyes: General: Right eye: No discharge. Left eye: No discharge. Pupils: Pupils are equal, round, and reactive to light. Cardiovascular: Rate and Rhythm: Normal rate and regular rhythm. Pulses: Normal pulses. Heart sounds: Normal heart sounds. No murmur heard. Pulmonary: Effort: Pulmonary effort is normal. No respiratory distress. Breath sounds: Normal breath sounds. No stridor. No wheezing or rhonchi. Abdominal: General: Abdomen is flat. There is no distension. Palpations: Abdomen is soft. There is no mass. Tenderness: There is no abdominal tenderness. There is no guarding. Musculoskeletal: General: No swelling or tenderness. Normal range of motion. Cervical back: Normal range of motion. No rigidity or tenderness. Right lower leg: No edema. Left lower leg: No edema. Lymphadenopathy: Cervical: No cervical adenopathy. Skin: General: Skin is warm and dry. Capillary Refill: Capillary refill takes less than 2 seconds. Findings: No bruising or erythema. Neurological: General: No focal deficit present. Mental Status: She is alert and oriented to person, place, and time. Mental status is at baseline. Psychiatric: Mood and Affect: Mood normal. Behavior: Behavior normal. Thought Content: Thought content normal. Judgment: Judgment normal. I have reviewed the following results: CMP, Lipid Panel, Hemoglobin A1C, and TSH ASSESSMENT/PLAN Routine history and physical examination of adult (Primary) - COMPREHENSIVE METABOLIC PANEL; Future; Expected date: 10/29/2023 - Ezetimibe 10 MG Oral Tablet (Zetia); Take 1 Tablet by mouth every afternoon. Mixed hyperlipidemia - LIPID PANEL WITH DIRECT LDL IF TG IS HIGH; Future; Expected date: 10/29/2023 - Ezetimibe 10 MG Oral Tablet (Zetia); Take 1 Tablet by mouth every afternoon. - Patient would like to completely discontinue pravastatin - not willing to dose decrease. - Would like to trial zetia and repeat lipid panel in 6 months. - If cholesterol increases with zetia consider 10mg rosuvastatin or 48mg fenofibrate. - Pt previously on pravastatin 40mg Prediabetes - HEMOGLOBIN A1C; Future; Expected date: 10/29/2023 - Recommending lifestyle modifications. Eat a diet that is high in fruits and vegetables, lean meats, and avoid drinks or foods with added sugar. - [place] [employer] Association recommends exercising daily at least 30 minutes a day five times weekly. Acquired hypothyroidism - TSH WITH FREE T4 IF INDICATED; Future; Expected date: 10/29/2023 Levothyroxine Sodium 88 MCG Oral Tablet (Levoxyl), TAKE 1 TABLET BY MOUTH EVERY DAY ON AN EMPTY STOMACH Chronic, stable. The current medical regimen is effective; continue present plan and medications. Anticipatory Guidance: Discussed below: Adult Anticipatory Guidance Ages 65 years and older: Diet: Nutritional Assessment. A diet that limits fats and sodium. Increase fiber and calcium intake. Recommend a diet high in fruits, vegetables and grains. Exercise: Encouraged regular physical activity as tolerated. Injury Prevention: Fall risk assessments, water temperature settings, domestic violence, smoking near bedding or near [facility], car safety, smoke detector use and replacements. I spent a total of 30-39 minutes (exact time 35 mins) on the date of service in preparation, delivery, and documentation of the care provided to Angélica Hammer excluding any time spent in the performance of separately billed services. Please note: Voice recognition software was used in the dictation of this note. Though I regularly review a progress note when I finish, I sometimes miss global commodity manager errors that might occur in the voice recognition which can result in erroneous words or sometimes odd combinations of words. -- ENZO Prater [place] [address] documented in this encounter Nursing Notes * Deneen Stein LPN - 04/28/2023 1:13 PM EDT Cpe 1 yr return ,labs completed documented in this encounter Plan of Treatment Upcoming Encounters Date Type Department Care Team (Late st Contact Info) Description 05/26/2023 11:05 AM EDT Office Visit Urogynecology [facility] [address] [place] [address] aPu Fernandes CRNP [address] [place] [phone] Nurse Yasmine Urogylucio [address] [place] [address] 06/10/2023 8:00 AM EDT Telemedicine Urogynecology [facility] [address] [place] [address] Jonathan Gannon MD [address] [place] [address] 07/01/2023 1:30 PM EDT Office Visit Urogynecology [facility] [address] [facility] [place] [address] Jonathan Gannon MD [address] [place] [address] 11/17/2023 10:00 AM EDT Office Visit [facility] [address], [place] [id number] Eugenia Santillan CRNP [address] [place] [phone] Scheduled Orders Name Type Priority Associated Diagnoses Orde r Schedule HEMOGLOBIN A1C Lab Routine Prediabetes Expected: 10/29/2023 (Approximate), Expires: 04/27/2024 COMPREHENSIVE METABOLIC PANEL Lab Routine Routine history and physical examination of adult Expected: 10/29/2023 (Approximate), Expires: 04/27/2024 LIPID PANEL WITH DIRECT LDL IF TG IS HIGH Lab Routine Mixed hyperlipidemia Expected: 10/29/2023 (Approximate), Expires: 04/27/2024 TSH WITH FREE T4 IF INDICATED Lab Routine Acquired hypothyroidism Expected: 10/29/2023 (Approximate), Expires: 04/27/2024 Health Maintenance Due Date Last Done Comments HIV Screening 1973 Hepatitis C Screening 1976 DTaP,Tdap,and Td Vaccines (1 - Tdap) 1977 Cologuard 11/17/2003 Sigmoidoscopy 11/17/2003 Zoster Vaccines (1 of 2) 2008 Fecal Occult Blood Test 12/24/2010 12/25/19 10, 07/26/2008, 05/24/2007 COVID-19 Vaccine (1 - season) 2022 Influenza Vaccine (FLU shot) (#1) [...] as of this encounter Visit Diagnoses Diagnosis Routine history and physical examination of adult- Primary Routine general medical examination at a [facility] Mixed hyperlipidemia Prediabetes Other abnormal glucose Acquired hypothyroidism Unspecified hypothyroidism documented in this encounter Care Teams Insurance Auditor Relationship Specialty Start Date End Date Sylvester Arce MD [address] [place] [address] PCP - General Family Medicine 04/03/22 documented as of this encounter
--- OUTSIDE RECORDS SUMMARY | 2023-05-30 02:53 | External Medical Summary ---
Author Name Unknown Address Unknown Organization K01:LABORATORY [facility] - [address] [facility] [address] Laboratory Report Ordering Provider Test Date Status BATSHEVA HERNANDEZ 04/25/2023 08:17:03 Final Observation Date Value Abnormality Reference (Units ) Status TSH 04/25/2023 08:17:03 0.82 0.27-4.20 (uIU/mL) Final Performing Location LABORATORY C - [address] [facility] [address]
--- OUTSIDE RECORDS SUMMARY | 2023-05-30 02:53 | External Medical Summary | Summary of Care ---
Author Name Unknown Organization [facility] Address [address] [place] [address] Phone [phone] Care Team Providers Care Drink Waiter Name Role Phone Sylvester Arce MD Primary Care Provider [phone] Reason for Visit * Reason Comments Pessary Check Encounter Details Date Type Department Care Team (Late st Contact Info) Description 05/26/2023 11:05 AM EDT Office Visit Urogynecology [facility] [address], [place] [phone] Pau Fernandes CRNP [address] [place] [address] Nurse Yasmine Urogyn [address] [place] [address] Uterovaginal prolapse, incomplete*; Vaginal atrophy; Pessary maintenance Allergies Active Allergy Reactions Criticality Noted Date Comments Bee Stings Edema airway High 12/24/2009 Ibuprofen 07/29/2004 itching Ragweed Wheezing 12/24/2009 documented as of this encounter (statuses as of 05/26/2023) Medications Medication Sig Dispensed Refills Start Date End Date Status EpiPen 2-Josiah 0.3 MG/0.3ML Injection Solution Auto-injector Inject into a large muscle. 0 Active Omeprazole 20 MG Oral Capsule Delayed Release (PriLOSEC)Indicatio ns:Gastroesophageal reflux disease, unspecified whether esophagitis present Take 1 Capsule by mouth in the morning. 1 hour before the first meal of the day. 90 Capsule 3 02/16/2023 Active Additional Information Patient not taking.Reported on 05/26/2023 Ezetimibe 10 MG Oral Tablet (Zetia)Indications: Routine history and physical examination of adult,Mixed hyperlipidemia Take 1 Tablet by mouth every afternoon. 90 Tablet 3 04/28/2023 Active Levothyroxine Sodium 88 MCG Oral Tablet (Levoxyl) TAKE 1 TABLET BY MOUTH EVERY DAY ON AN EMPTY STOMACH 90 Tablet 3 05/11/2023 Active Premarin 0.625 MG/GM Vaginal Cream (Estrogens Conjugated)Indicati ons:Vaginal atrophy Administer 1 g into the vagina once a day on Thursday, Thursday, and Thursday only. At bedtime 42.5 g 6 05/27/2023 Active Premarin 0.625 MG/GM Vaginal Cream (Estrogens Conjugated)Indicati ons:Vaginal atrophy Administer 1 g into the vagina once a day on Thursday, Thursday, and Thursday only. At bedtime 42.5 g 6 11/05/2022 4 Discontinu ed(Refill) documented as of this encounter (statuses as of 05/26/2023) Active Problems Problem Noted Date Diagnosed Date [...] as of this encounter (statuses as of 05/26/2023) Resolved Problems Problem Noted Date Diagnosed Date Resolved Date PURE HYPERCHOLESTEROLEM 01/09 Overview: Per Lipid Taxonomy. documented as of this encounter (statuses as of 05/26/2023) Social History Tobacco Use Types Packs/Day Years [...] on file documented as of this encounter Progress Notes * Pau Fernandes, ENZO - 05/26/2023 11:23 AM EDT Angélica Harman presents for a pessary maintenance visit at [facility]. HPI: Patient was previously seen for UVP and SYLVESTER managed with #3 ring with support pessary and vaginal estrogen cream. Interval pessary, surgical repair with Dr. Gannon in May 2023. Pt presents today for pessary removal prior to surgery. She was using the vaginal estrogen cream 2-3 times per week; has not been using over at least the past week, agreeable to restarting. Pessary is comfortable and fitting well. No abnormal discharge, irritation, or vaginal bleeding. She denies urinary urgency, burning with urination, or leaking of urine. Bowels are WNL. She denies excessive fluid intake. Allergies: Review of patient's allergies indicates: Allergen Reactions Bee Stings Edema airway Ibuprofen itching Ragweed Wheezing Active Medications: Current Outpatient Medications Medication Sig Dispense Refill EpiPen 2-Josiah 0.3 MG/0.3ML Injection Solution Auto-injector Inject into a large muscle. Ezetimibe 10 MG Oral Tablet (Zetia) Take 1 Tablet by mouth every afternoon. 90 Tablet 3 Levothyroxine Sodium 88 MCG Oral Tablet (Levoxyl) TAKE 1 TABLET BY MOUTH EVERY DAY ON AN EMPTY STOMACH 90 Tablet 3 [START ON 05/27/2023] Premarin 0.625 MG/GM Vaginal Cream (Estrogens Conjugated) Administer 1 g into the vagina once a day on Thursday, Thursday, and Thursday only. At bedtime 42.5 g 6 Omeprazole 20 MG Oral Capsule Delayed Release (PriLOSEC) Take 1 Capsule by mouth in the morning. 1 hour before the first meal of the day. (Patient not taking: Reported on 05/26/2023) 90 Capsule 3 No current facility-administered medications for this visit. EXAM: GENERAL: Well developed well nourished female in no apparent distress. Alert oriented x3. THYROID: No visible masses/nodules. LUNG: Normal respiratory effort, no audible wheeze,no accessory muscle use CARDIOVASCULAR: No cardiopulmonary distress. No cyanosis or edema NEUROLOGICAL: Normal balance, speech in-tact and appropriate, no obvious focal neurologic deficits PELVIC EXAM: External Genitalia: Atrophic external female genitalia, no visible lesions or irritation Vagina: Atrophic with decreased rugation. No vaginal discharge noted. #3 ring with support pessary removed. Tissue estrogenized with use of vaginal estrogen with no vaginal bleeding, lesions or erosions noted - slight irritation at vaginal apex. Levator ani muscle strength 4 Bimanual: No masses or tenderness. Rectal: perianal area normal, anus normal Impression/Plan: This is a 62 year old female withUVP and SYLVESTER who presents today for pessary removal prior to surgery. Plan of care today includes: Pessary removal prior to surgery per patient F/u with Dr. Gannon Uterovaginal prolapse, incomplete (Primary) Vaginal atrophy - Premarin 0.625 MG/GM Vaginal Cream (Estrogens Conjugated); Administer 1 g into the vagina once a day on Thursday, Thursday, and Thursday only. At bedtime Pessary maintenance Follow Up: Return if symptoms worsen or fail to improve. Education: Continue use of vaginal estrogen cream 2-3x weekly as instructed. Call if any questions, problems or concerns. Total of 20 mins spent on the date of this encounter. Time was spent in pre- charting, face to face counseling, reviewing available lab data and imaging, discussing short-term + long-term management as well as risks and benefits of various therapies, ordering additional tests, and visit documentation. All questions were answered ENZO De León 05/26/2023 documented in this encounter Nursing Notes * Amy Timmons MED ASSIST - 05/26/2023 11:18 AM EDT Patient presents to the clinic today for a pessary check. documented in this encounter Plan of Treatment Upcoming Encounters Date Type Department Care Team (Late st Contact Info) Description 06/10/2023 8:00 AM EDT Telemedicine [facility] [address] [facility] [address] Jonathan [facility] [address] [facility] [address] 07/01/2023 1:30 PM EDT Office Visit [facility] [place] [address] Jonathan Gannon MD [address] [facility] [place] [address] 11/17/2023 10:00 AM EDT Office Visit [facility] [address] [facility] [place] [address] Eugenia Santillan CRNP [address] [place] [phone] Health Maintenance Due Date Last Done Comments HIV Screening 1973 Hepatitis C Screening 1976 DTaP,Tdap,and Td Vaccines (1 - Tdap) 1977 Cologuard 11/17/2003 Sigmoidoscopy 11/17/2003 Zoster Vaccines (1 of 2) 2008 Fecal Occult Blood Test 12/24/2010 12/25/19 10, 07/26/2008, 05/24/2007 COVID-19 Vaccine ( - season) 2022 Depression Screening 04/03/2023 04/03/2022 Influenza [...] as of this encounter Visit Diagnoses Diagnosis Uterovaginal prolapse, incomplete- Primary Vaginal atrophy Postmenopausal atrophic vaginitis Pessary maintenance Fitting and adjustment of other device documented in this encounter Care Teams Drink Waiter Relationship Specialty Start Date End Date Sylvester Arce MD [address] [place] [id number] PCP - General Family Medicine 04/03/22 documented as of this encounter
--- OUTSIDE RECORDS SUMMARY | 2023-05-30 02:54 | External Medical Summary | Summary of Care ---
Author Name Unknown Organization [facility] Address [address] [place] [address] Phone [phone] Care Team Providers Care Market Reporter Name Role Phone Sylvester Herman MD Primary Care Provider [phone] Reason for Visit * Reason Comments eRx-Medication Refill Encounter Details Date Type Department Care Team (Late st Contact Info) Description 02/09/2023 Refill [facility] [address], [place] [phone] Sylvester Herman MD [address], [place] [phone] Allergies Active Allergy Reactions Criticality Noted Date Comments Bee Stings Edema airway High 12/24/2009 Ibuprofen 07/29/2004 itching Ragweed Wheezing 12/24/2009 documented as of this encounter (statuses as of 02/10/2023) Medications Medication Sig Dispensed Refills Start Date End Date Status EpiPen 2-Josiah 0.3 MG/0.3ML Injection Solution Auto-injector Inject into a large muscle. 0 Active Hydrocortisone (Perianal) 2.5 % External Cream (Anusol-HC) Administer into the rectum 2 times a day. 30 g 1 07/14/2022 Active Additional Information Patient not taking.Reported on 01/22/2023 TobraDex 0.3-0.1 % Ophthalmic Ointment (Tobramycin-Dexa methasone) Instill into the left eye 3 times a day. 0 Active Premarin 0.625 MG/GM Vaginal Cream (Estrogens Conjugated)Indic ations:Vaginal atrophy Administer 1 g into the vagina once a day on Thursday, Thursday, and Thursday only. At bedtime 42.5 g 6 11/05/2022 Active Omeprazole 20 MG Oral Capsule Delayed Release (PriLOSEC)Indica tions:Gastroesop hageal reflux disease, unspecified whether esophagitis present Take 1 Capsule by mouth in the morning. 1 hour before the first meal of the day. 30 Capsule 5 01/22/2023 Active Pravastatin Sodium 40 MG Oral Tablet (Pravachol) TAKE 1 TABLET BY MOUTH EVERY DAY WITH DINNER 90 Tablet 1 02/03/2023 Active Levothyroxine Sodium 88 MCG Oral Tablet (Levoxyl) TAKE 1 TABLET BY MOUTH EVERY DAY ON AN EMPTY STOMACH 90 Tablet 0 02/10/2023 Active Levothyroxine Sodium 88 MCG Oral Tablet (Levoxyl) TAKE 1 TABLET BY MOUTH EVERY DAY ON AN EMPTY STOMACH 90 Tablet 1 06/23/2022 4 Discontinued documented as of this encounter (statuses as of 02/10/2023) Active Problems Problem Noted Date Diagnosed Date [...] as of this encounter (statuses as of 02/10/2023) Resolved Problems Problem Noted Date Diagnosed Date Resolved Date PURE HYPERCHOLESTEROLEM 01/09 Overview: Per Lipid Taxonomy. documented as of this encounter (statuses as of 02/10/2023) Social History Tobacco Use Types Packs/Day Years Used Date Smoking Tobacco: Former Cigarettes 5 4 Q uit: 03/12/1980 Smokeless Tobacco: Never Alcohol Use Standard [...] encounter Miscellaneous Notes * Telephone Encounter - Kimberley Barrera RPh - 02/10/2023 4:09 PM ESTSigned Prescriptions: Disp Refills Levothyroxine Sodium 88 MCG Oral Tablet (L*90 Tab*0 Sig: TAKE 1 TABLET BY MOUTH EVERY DAY ON AN EMPTY STOMACHAuthorizing Provider: Toya HERMAN User: GERALD BARRERA * Telephone Encounter - Kimberley Barrera RPh - 02/10/2023 4:08 PM EST RX authorized. Zero refills given until upcoming lab appointment 04/24/23. Thanks, Kimberley Dura, PharmD Clinical Pharmacist [facility] ([facility]) [phone] 02/10/2023, 4:08 PM documented in this encounter Plan of Treatment Upcoming Encounters Date Type Department Care Team (Latest Contact Info) Description 03/12/2023 1:00 PM EST Imaging Radiology Mobile, [facility] [address] [place] [address] 04/24/2023 8:20 AM EDT Laboratory Laboratory, [place] [address] [place] [phone] [place], Lab [address], [place] [phone] 04/28/2023 1:30 PM EDT Office Visit Family [facility], [place] [address], [place] [phone] Eugenia Santillan CRNP [address] [place] [phone] 05/13/2023 2:55 PM EDT Office Visit Urogynecology [facility] [address] [place] [address] Pau Fernandes CRNP [address] [place] [address] Nurse Yasmine Urogyn [address] [place] [address] 05/21/2023 11:15 AM EDT Hospital Encounter OR [facility], Operating Room, [facility] - 4th Floor [address] [place] [address] [place] [address] Jonathan Gannon MD [address] [place] [address] 05/21/2023 11:15 AM EDT - 05/21/2023 3:14 PM EDT Surgery OR [facility], Operating Room, [facility] - 4th Floor [address] [place] [address] Jonathan Gannon MD [address] [place] [address] ROBOTIC LAPAROSCOPIC HYSTERECTOMY REMOVAL TUBES AND OVARIES FOR UTERUS 250GM OR LESS 07/01/2023 1:30 PM EDT Office Visit Urogynecology [facility] [address] [place] [address] Jonathan Gannon MD [address] [place] [address] Scheduled Procedures Name Priority Associated Diagnoses Date/Ti me ROBOTIC LAPAROSCOPIC HYSTERECTOMY REMOVAL TUBES AND OVARIES FOR UTERUS 250GM OR LESS Female stress incontinence Incomplete uterovaginal prolapse 05/21/2023 11:15 AM EDT ROBOTIC LAPAROSCOPY SURGICAL COLPOPEXY Female stress incontinence Incomplete uterovaginal prolapse 05/21/2023 11:15 AM EDT VAGINAL SLING PROCEDURE FOR STRESS INCONTINENCE Female stress incontinence Incomplete uterovaginal prolapse 05/21/2023 11:15 AM EDT CYSTOURETHROSCOPY Female stress incontinence Incomplete uterovaginal prolapse 05/21/2023 11:15 AM EDT Health Maintenance Due Date Last Done Comments COVID-19 Vaccine (#1) 05/18/1961 HIV Screening 1973 Hepatitis C Screening 1976 DTaP,Tdap,and Td Vaccines (1 - Tdap) 1977 Cologuard 11/17/2003 Sigmoidoscopy 11/17/2003 Zoster Vaccines (1 of 2) 2008 Fecal Occult Blood Test 12/24/2010 12/25/19 10, 07/26/2008, 05/24/2007 Influenza Vaccine (FLU shot) (#1) 2022 Mammogram 02/24/2023 02/24/2022, 02/2020, 10/04/2018, Additional history exists HbA1c 03/25/2023 03/25/2022 TSH 03/25/2023 03/25/2022, 080 03/2021, 03/06/2021, Additional history exists Depression Screening 04/03/2023 04/03/2022 Pap Smear 07/14/2025 07/14/2022, 04/10, 12/24/2009, Additional [...] filedocumented as of this encounter Care Teams Market Reporter Relationship Specialty Start Date End Date Sylvester Herman MD [address] [place] [address] PCP - General Family Medicine 04/03/22 documented as of this encounter
--- OUTSIDE RECORDS SUMMARY | 2023-05-30 02:54 | External Medical Summary | Summary of Care ---
Author Name Unknown Organization [facility] Address [address] [place] [address] Phone [phone] Care Team Providers Care Furnace Setter Name Role Phone Sylvester Arce MD Primary Care Provider [phone] Reason for Visit * Reason Onset Date Comments Advice 01/21/2023 Encounter Details Date Type Department Care Team (Late st Contact Info) Description 01/21/2023 Telephone [facility] [address], [place] [phone] Sylvester Arce MD [address], [place] [phone] Advice Allergies Active Allergy Reactions Criticality Noted Date Comments Bee Stings Edema airway High 12/24/2009 Ibuprofen 07/29/2004 itching Ragweed Wheezing 12/24/2009 documented as of this encounter (statuses as of 01/21/2023) Medications Medication Sig Dispensed Refills Start Date End Date Status Levothyroxine Sodium 88 MCG Oral Tablet (Levoxyl) TAKE 1 TABLET BY MOUTH EVERY DAY ON AN EMPTY STOMACH 90 Tablet 1 06/23/2022 Active EpiPen 2-Josiah 0.3 MG/0.3ML Injection Solution Auto-injector Inject into a large muscle. 0 Active Hydrocortisone (Perianal) 2.5 % External Cream (Anusol-HC) Administer into the rectum 2 times a day. 30 g 1 07/14/2022 Active TobraDex 0.3-0.1 % Ophthalmic Ointment (Tobramycin-Dexame thasone) Instill into the left eye 3 times a day. 0 Active Pravastatin Sodium 40 MG Oral Tablet (Pravachol) Take 1 Tablet by mouth daily with dinner. 90 Tablet 0 11/03/2022 02/01/2023 Active Premarin 0.625 MG/GM Vaginal Cream (Estrogens Conjugated)Indicat ions:Vaginal atrophy Administer 1 g into the vagina once a day on Thursday, Thursday, and Thursday only. At bedtime 42.5 g 6 11/05/2022 Active documented as of this encounter (statuses as of 01/21/2023) Active Problems Problem Noted Date Diagnosed Date [...] as of this encounter (statuses as of 01/21/2023) Resolved Problems Problem Noted Date Diagnosed Date Resolved Date PURE HYPERCHOLESTEROLEM 01/09 Overview: Per Lipid Taxonomy. documented as of this encounter (statuses as of 01/21/2023) Social History Tobacco Use Types Packs/Day Years [...] encounter Miscellaneous Notes * Telephone Encounter - Deneen Willson OSA - 01/21/2023 1:19 PM EST Pt scheduled and aware. * Telephone Encounter - Pranav Su OSA - 01/21/2023 10:58 AM EST Pt called in with nausea and sniffles. No Appointments Available Patient declined appointments?: No What Visit Type is needed? Acute If Acute Visit Type is needed, were surrounding clinics offered to patient (Yes/No)? N/A Was patient offered appointments with other available providers (Yes/No)? Yes See Call Details? (Yes or No): No documented in this encounter Plan of Treatment Upcoming Encounters Date Type Department Care Team (Latest Contact Info) Description 01/22/2023 10:20 AM EST Office Visit Family Practice, [place] [address] [place] [address] Eugenia Santillan CRNP [address] [place] [address] 02/10/2023 11:05 AM EST Office Visit Urogynecology [facility] [address] [place] [address] Pau Fernandes CRNP [address] [place] [address] Nurse Aimee Underwood [address] [place] [address] 03/12/2023 1:00 PM EST Imaging Radiology Mobile, [place] [id number] [place] [address] 04/24/2023 8:20 AM EDT Laboratory Laboratory, [place] [address] [place] [phone] [facility] [address] [place] [address] 04/28/2023 12:30 PM EDT Office Visit [facility] [address] [place] [address] Eugenia Santillan CRNP [address] [place] [phone] 05/21/2023 11:15 AM EDT Hospital Encounter OR [facility], Operating Room, [facility] - 4th Floor [address] [place] [address] Jonathan Gannon MD [address] [place] [address] 05/21/2023 11:15 AM EDT - 05/21/2023 3:14 PM EDT Surgery OR [facility], Operating Room, [facility] - 4th Floor [address] [place] [address] Jonathan Gannon MD [address] [place] [address] ROBOTIC LAPAROSCOPIC HYSTERECTOMY REMOVAL TUBES AND OVARIES FOR UTERUS 250GM OR LESS 06/02/2023 8:00 AM EDT Telemedicine Urogynecology [facility] [address] [place] [address] Jonathan Gannon MD [address] [place] [address] 07/01/2023 1:30 PM EDT Office Visit Urogynecology [facility] [address] [place] [address] Jonathan Gannon MD [address] [place] [address] Scheduled Procedures Name Priority Associated Diagnoses Date/Ti [...] 2) 2008 Fecal Occult Blood Test 12/24/2010 12/25/19, 07/26/2008, 05/24/2007 Influenza Vaccine (FLU shot) (#1) [...] filedocumented as of this encounter Care Teams Furnace Setter Relationship Specialty Start Date End Date Sylvester Arce MD [address] [place] [address] PCP - General Family Medicine 04/03/22 documented as of this encounter
--- OUTSIDE RECORDS SUMMARY | 2023-05-30 02:54 | External Medical Summary | Summary of Care ---
Author Name Unknown Organization [facility] [address] [place] [address] Phone [phone] Care Team Providers Care Occupational Therapist'S Assistant Name Role Phone Sylvester Arce MD Primary Care Provider [phone] Reason for Visit * Reason Onset Date Comments Surgery 01/05/2023 Encounter Details Date Type Department Care Team ([facility] st Contact Info) Description 01/05/2023 Telephone Urogynecology [facility] [address], [place] [phone] [place] Nurse Urogyn [address] [place] [address] Surgery Allergies Active Allergy Reactions Criticality Noted Date Comments Bee Stings Edema airway High 12/24/2009 Ibuprofen 07/29/2004 itching Ragweed Wheezing 12/24/2009 documented as of this encounter (statuses as of 01/05/2023) Medications Medication Sig Dispensed Refills Start Date [...] as of this encounter (statuses as of 01/05/2023) Active Problems Problem Noted Date Diagnosed Date [...] as of this encounter (statuses as of 01/05/2023) Resolved Problems Problem Noted Date Diagnosed Date Resolved Date PURE HYPERCHOLESTEROLEM 01/09 Overview: Per Lipid Taxonomy. documented as of this encounter (statuses as of 01/05/2023) Social History Tobacco Use Types Packs/Day Years [...] encounter Miscellaneous Notes * Telephone Encounter - Molly Bo RN - 01/05/2023 2:55 PM EST Returned patients call as she had questions about her upcoming procedures. She thought that they had decided not to do a hysterectomy or a sling procedure. Scheduled a video visit to discuss further. documented in this encounter Plan of Treatment Upcoming Encounters Date Type Department Care Team (Latest Contact Info) Description 01/12/2023 10:40 AM EST Telemedicine Urogynecology [facility] [address] [facility] [place] [address] Jonathan Gannon MD 132 [facility] [place] [address] 02/10/2023 11:05 AM EST [facility] [address] [facility] [address] Pau Fernandes CRNP [address] [place] [address] Nurse Aimee Underwood [address] [place] [facility] [place] [address] 04/24/2023 8:20 AM EDT Laboratory Laboratory, [place] [address] [place] [address] [place], Lab [address] [facility], [place] [phone] 04/28/2023 12:30 PM EDT Office Visit [facility], [place] [address] [place] [address] Eugenia Santillan, [employer] [address] [place] [address] 05/21/2023 11:15 AM EDT Hospital Encounter OR [facility], Operating Room, [facility] - 4th Floor [address] [place] [address] Jonathan Gannon MD [address] [place] [address] 05/21/2023 11:15 AM EDT - 05/21/2023 3:14 PM EDT Surgery OR [facility], Operating Room, [facility] Floor [address] [place] [address] Jonathan Gannon MD [address] [place] [address] ROBOTIC LAPAROSCOPIC HYSTERECTOMY REMOVAL TUBES AND OVARIES FOR UTERUS 250GM OR LESS 06/02/2023 8:00 AM EDT Telemedicine Urogynecology [facility] [address] [place] [address] Jonathan Gannon MD [address] [place] [address] 07/01/2023 1:30 PM EDT Office Visit Urogynecology [facility] [address] [place] [address] Jonathan Gannon MD [address] [place] [address] Scheduled Procedures Name Priority Associated Diagnoses Date/Ti [...] (FLU shot) (#1) 2022 Mammogram 02/24/2023 02/24/2022, 02/0 02/2020, 10/04/2018, Additional history exists HbA1c 03/25/2023 03/25/2022 TSH 03/25/2023 03/25/2022, 08/0 03/2021, 03/06/2021, Additional history exists Depression Screening 04/03/2023 04/03/2022 Pap Smear 07/14/2025 07/14/2022, 03/2 10/2017, 12/24/2009, Additional history exists Lipid Panel 03/25/2027 [...] filedocumented as of this encounter Care Teams Occupational Therapist'S Assistant Relationship Specialty Start Date End Date Sylvester Arce MD [address] [place] [address] PCP - General Family Medicine 04/03/22 documented as of this encounter
--- OUTSIDE RECORDS SUMMARY | 2023-05-30 02:54 | External Medical Summary | Summary of Care ---
Author Name Unknown Organization [facility] Address [address] [place] [address] Phone [phone] Care Team Providers Care Supervisor Electronics Assembly Name Role Phone Sylvester Herman MD Primary Care Provider [phone] Reason for Visit * Reason Comments eRx-Medication Refill Encounter Details Date Type Department Care Team (Late st Contact Info) Description 01/31/2023 Refill [facility] [address], [place] [phone] Sylvester Herman MD [address], [place] [phone] Allergies Active Allergy Reactions Criticality Noted Date Comments Bee Stings Edema airway High 12/24/2009 Ibuprofen 07/29/2004 itching Ragweed Wheezing 12/24/2009 documented as of this encounter (statuses as of 02/03/2023) Medications Medication Sig Dispensed Refills Start Date End Date Status Levothyroxine Sodium 88 MCG Oral Tablet (Levoxyl) TAKE 1 TABLET BY MOUTH EVERY DAY ON AN EMPTY STOMACH 90 Tablet 1 06/23/2022 Active EpiPen 2-Ojsiah 0.3 MG/0.3ML Injection Solution Auto-injector Inject into [...] WITH DINNER 90 Tablet 1 02/03/2023 Active Pravastatin Sodium 40 MG Oral Tablet (Pravachol) Take 1 Tablet by mouth daily with dinner. 90 Tablet 0 11/03/2022 3 Discontinued documented as of this encounter (statuses as of 02/03/2023) Active Problems Problem Noted Date Diagnosed Date [...] as of this encounter (statuses as of 02/03/2023) Resolved Problems Problem Noted Date Diagnosed Date Resolved Date PURE HYPERCHOLESTEROLEM 01/09 Overview: Per Lipid Taxonomy. documented as of this encounter (statuses as of 02/03/2023) Social History Tobacco Use Types Packs/Day Years [...] encounter Miscellaneous Notes * Telephone Encounter - Richard Molina RPh - 02/03/2023 7:58 AM ESTSigned Prescriptions: Disp Refills Pravastatin Sodium 40 MG Oral Tablet (Prav*90 Tab*1 Sig: TAKE 1 TABLET BY MOUTH EVERY DAY WITH DINNERAuthorizing Provider: Toya HERMAN User: RICHARD MOLINA----- * Telephone Encounter - Richard Molina RPh - 02/03/2023 7:57 AM EST Labs ordered previously Thanks, Shalom Molina, PharmD Clinical Pharmacist [facility] ([facility]) (Formerly Telepharmacy) [phone] 02/03/2023 7:57 AM documented in this encounter Plan of Treatment Upcoming Encounters Date Type Department Care Team (Latest Contact Info) Description 02/10/2023 11:05 AM EST Office Visit Urogynecology [facility] [address] [place] [address] Pau Fernandes CRNP [address] [place] [address] Nurse Aimee Underwood [address] [place] [address] 03/12/2023 1:00 PM EST Imaging Radiology Mobile, [place] [address] [place] [address] 04/24/2023 8:20 AM EDT Laboratory Laboratory, [place] [address] [place] [address] [place], [facility] [address] [place] [address] 04/28/2023 1:30 PM EDT Office Visit [facility] [address] [place] [address] Eugenia Santlilan CRNP [address] [place] [address] 05/21/2023 11:15 AM EDT Hospital Encounter OR [facility], Operating Room, [facility] - 4th Floor [address] [place] [address] [place] [address] Jonathan Gannon MD [address] [place] [address] 05/21/2023 11:15 AM EDT - 05/21/2023 3:14 PM EDT Surgery OR [facility], Operating Room, [facility] - 4th Floor [address] [place] [address] Jonathan Gannon MD [address] [place] [address] ROBOTIC LAPAROSCOPIC HYSTERECTOMY REMOVAL TUBES AND OVARIES FOR UTERUS 250GM OR LESS 07/01/2023 1:30 PM EDT Office Visit Urogynecology [facility] [address] [place] [address] Jonathan Gannon MD [address] [place] [address] Scheduled Procedures Name Priority Associated Diagnoses Date/Ti [...] (FLU shot) (#1) 2022 Mammogram 02/24/2023 02/24/2022, 020 02/2020, 10/04/2018, Additional history exists HbA1c 03/25/2023 [...] filedocumented as of this encounter Care Teams Supervisor Electronics Assembly Relationship Specialty Start Date End Date Sylvester Herman MD [address] [place] [address] PCP - General Family Medicine 04/03/22 documented as of this encounter
--- OUTSIDE RECORDS SUMMARY | 2023-05-30 02:54 | External Medical Summary | Summary of Care ---
Author Name Unknown Organization [facility] Address [address] [place] [address] Phone [phone] Care Team Providers Care Senior Designer Name Role Phone Sylvester Arce MD Primary Care Provider [phone] Reason for Visit * Reason Comments Follow Up Encounter Details Date Type Department Care Team (Late st Contact Info) Description 01/12/2023 10:40 AM EST Telemedicine Urogynecology [facility] [address] [place] [address] Jonathan Gannon MD [address] [place] [address] Uterovaginal prolapse, incomplete*; Cystocele, midline Allergies Active Allergy Reactions Criticality Noted Date Comments Bee Stings Edema airway High 12/24/2009 Ibuprofen 07/29/2004 itching Ragweed Wheezing 12/24/2009 documented as of this encounter (statuses as of 01/12/2023) Medications Medication Sig Dispensed Refills Start Date [...] as of this encounter (statuses as of 01/12/2023) Active Problems Problem Noted Date Diagnosed Date [...] as of this encounter (statuses as of 01/12/2023) Resolved Problems Problem Noted Date Diagnosed Date Resolved Date PURE HYPERCHOLESTEROLEM 01/09 Overview: Per Lipid Taxonomy. documented as of this encounter (statuses as of 01/12/2023) Social History Tobacco Use Types Packs/Day Years [...] as of this encounter Progress Notes * Jonathan Gannon MD - 01/12/2023 10:48 AM EST Angélica Hammer presents for a follow up visit at [facility]Uro[facility]ologic [facility]. Patient location: HOME. I was in a hospital or clinic location. After connecting through televideo,patient was verified with two unique identifiers. Patient (or authorized legal benefits representative) was then informed that this was a Telemedicine visit and being conducted confidentially over secure lines. Methods to assure confidentiality were taken. Patient acknowledged consent and understanding of pr ivacy and security of the Telemedicine visit. The patient agreed to participate. She was previously seen for N81.2 Uterovaginal prolapse, incomplete (primary encounter diagnosis) N81.11 Cystocele, midline Has questions about her upcoming surgery. We reviewed the diagnosis of Cystocele and uterine prolapse at her last visit and planned for robotic hysterectomy, bso, sacral colpopexy, possible sling. Allergies: Review of patient's allergies indicates: Allergen Reactions Bee Stings Edema airway Ibuprofen itching Ragweed Wheezing Active Medications: Current Outpatient Medications Medication Sig Dispense Refill Levothyroxine Sodium 88 MCG Oral Tablet (Levoxyl) TAKE 1 TABLET BY MOUTH EVERY DAY ON AN EMPTY STOMACH 90 Tablet 1 EpiPen 2-Josiah 0.3 MG/0.3ML Injection Solution Auto-injector Inject into a large muscle. Hydrocortisone (Perianal) 2.5 % External Cream (Anusol-HC) Administer into the rectum 2 times a day. 30 g 1 TobraDex 0.3-0.1 % Ophthalmic Ointment (Tobramycin-Dexamethasone) Instill into the left eye 3 timesa day. (Patient not taking: Reported on 10/15/2022) Pravastatin Sodium 40 MG Oral Tablet (Pravachol) Take 1 Tablet by mouth daily with dinner. 90 Tablet 0 Premarin 0.625 MG/GM Vaginal Cream (Estrogens Conjugated) Administer 1 g into the vagina once a dayon Thursday, Thursday, and Thursday only. At bedtime 42.5 g 6 No current facility-administered medications for this visit. ROS: No Change since previous visit Impression: This is a 62 year old with Uterovaginal prolapse, incomplete (Primary) Cystocele, midline We reviewed the diagnosis and options including custodial pessary use vs vaginal hysterectomy and vaginal repair vs robotic hysterectomy and sacral colpopexy. After answering her questions, we confirmed that she desires robotic approach with robotic hysterectomy, bso, sacral colpopexy, cystoscopy. Since using the right pessary, she denies having SYLVESTER. We agreed that the sling is only for occult SYLVESTER. All questions answered. I spent a total of 20 minutes on the date of service in preparation, delivery, and documentation ofthe care provided to Angélica Hammer excluding any time spent in the performance of separately billedservices. Jonathan Gannon MD 01/12/2023 10:56 AM documented in this encounter Plan of Treatment Upcoming Encounters Date Type Department Care Team (Latest Contact Info) Description 02/10/2023 11:05 AM EST Office Visit Urogynecology [facility] [address] [place] [address] Pau Fernandes CRNP [address] [place] [address] Nurse Aimee Underwood [address] [place] [address] 04/24/2023 8:20 AM EDT Laboratory Laboratory, [address] [place] [address] [place], [facility] [address] [facility] [place], [place] [id number] 04/28/2023 12:30 PM EDT Office Visit [facility], [place] [address] [place], [place] [phone] Eugenia Santillan CRNP [address] [place] [address] 05/21/2023 11:15 AM EDT Hospital Encounter OR [facility], Operating Room, [facility] - 4th Floor [address] [place] [address] Jonathan Gannon MD [address] [place] [address] 05/21/2023 11:15 AM EDT - 05/21/2023 3:14 PM EDT Surgery OR [facility], Operating Room, [facility] - [facility] Floor [address] [place] [address] Jonathan Gannon MD [address] [place] [address] ROBOTIC LAPAROSCOPIC HYSTERECTOMY REMOVAL TUBES AND OVARIES FOR UTERUS 250GM OR LESS 06/02/2023 8:00 AM EDT Telemedicine Urogynecology [facility] [address] [place] [address] Jonathan Gannon MD [address] [place] [address] 07/01/2023 1:30 PM EDT Office Visit Urogynecology [facility] [address] [place] [address] Jonathan Gannon MD [address] [place] [address] Scheduled Procedures Name Priority Associated Diagnoses Date/Ti [...] Screening 04/03/2023 04/03/2022 Pap Smear 07/14/2025 07/14/2022, 2 10/2017, 12/24/2009, Additional history exists Lipid Panel [...] Visit Diagnoses Diagnosis Uterovaginal prolapse, incomplete- Primary Cystocele, midline Female stress incontinence Incomplete uterovaginal prolapse Uterovaginal prolapse, incomplete documented in this encounter Care Teams Senior Designer Relationship Specialty Start Date End Date Sylvester Arce MD [address] [place] [address] PCP - General Family Medicine 04/03/22 documented as of this encounter
--- OUTSIDE RECORDS SUMMARY | 2023-05-30 02:54 | External Medical Summary | Summary of Care ---
Author Name Unknown Organization [facility] Address [address] [place] [address] Phone [phone] Care Team Providers Care Chemical Lab Supervisor Name Role Phone Sylvester Arce MD Primary Care Provider [phone] Reason for Visit * Reason Onset Date Comments Order Request 01/05/2023 LabsPt aware lab s and mammogram order placed Encounter Details Date Type Department Care Team (Late st Contact Info) Description 01/05/2023 Telephone [facility] [address] [place], [place] [phone] Sylvester Arce MD [address], [place] [phone] Order Request (Labs/Pt aware labs and mamm... Allergies Active Allergy Reactions Criticality Noted Date [...] encounter Miscellaneous Notes * Telephone Encounter - Michelle Gonzales MED ASSIST - 01/05/2023 10:28 AM EST Made pt aware labs and mammogram order placed * Telephone Encounter - Odette Chen OSA - 01/05/2023 9:31 AM EST An order was requested for this patient. Name of Requesting Provider: Patient Order Requested: Routine labs- previous orders from 04/03/22- patient not coming in until April 2023to have labs done Diagnosis/Reason for Request: Routine If order request is for Mammogram: Is the patient having any breast symptoms? N/A Is there a chance of ? N/A Has the patient had any breast problems in the past? NA What location AND department does the patient wish to have their order completed at? [place] Fax Number, if applicable: N/A Call Back Number: [phone] If the caller is not a current patient, please advise the patient to call their current PCP to havethe order's prior to being seen in our office. The patient was informed that our providers would not order anything (medication, labs, etc.) prior to being seen. documented in this encounter Plan of Treatment Upcoming Encounters Date Type Department Care Team (Latest Contact Info) Description 02/10/2023 11:05 AM EST Office Visit Urogynecology [facility] [address] [place] [address] Pau Fernandes CRNP [address] [place] [phone] Nurse Yasmine Urogyn [address] [place] [address] 04/24/2023 8:20 AM EDT Laboratory Laboratory, [place] [address] [place] [phone] [facility] [address] [place] [id number] 04/28/2023 12:30 PM EDT Office Visit [place] [address], [place] [phone] Eugenia Santillan CRNP [address] [place] [phone] 05/21/2023 11:15 AM EDT Hospital Encounter OR [facility], Operating Room, [facility] - 4th Floor [address] [place] [address] Jonathan Gannon MD [address] [place] [address] 05/21/2023 11:15 AM EDT - 05/21/2023 3:14 PM EDT Surgery OR [facility], Operating Room, [facility] - 4th Floor [address] [place] [address] Jonathan Gannon MD [address] [place] [address] ROBOTIC LAPAROSCOPIC HYSTERECTOMY REMOVAL TUBES AND OVARIES FOR UTERUS 250GM OR LESS 06/02/2023 8:00 AM EDT Telemedicine Urogynecology [facility] [address] [place] [address] Jonathan Gannon MD [address] [place] [address] 07/01/2023 1:30 PM EDT Office Visit Urogynecology [facility] [address] [place] [address] Jonathan Gannon MD [address] [place] [address] Scheduled Orders Name Type Priority Associated Diagnoses Orde r Schedule TSH WITH FREE T4 IF INDICATED Lab Routine Hypothyroidism Expected: 01/05/2023 (Approximate), Expires: 01/05/2024 LIPID PANEL WITH DIRECT LDL IF TG IS HIGH Lab Routine Hypertension goal BP (blood pressure) < 140/90 DYSLIPIDEMIA, GOAL TO BE DETERMINED Expected: 01/05/2023, Expires: 01/06/2024 BASIC METABOLIC PANEL Lab Routine Prediabetes Expected: 01/05/2023 (Approximate), Expires: 01/05/2024 HEMOGLOBIN A1C Lab Routine Prediabetes Expected: 01/05/2023 (Approximate), Expires: 01/05/2024 MAMMOGRAM SCREENING MARIA EUGENIA BILATERAL Medical Imaging Routine Encounter for screening mammogram for breast cancer Expected: 02/04/2023, Expires: 02/05/2024 Scheduled Procedures Name Priority Associated Diagnoses Date/Ti [...] exists HbA1c 03/25/2023 03/25/2022 TSH 03/25/2023 03/25/2022, 03/2021, 03/06/2021, Additional history exists Depression Screening [...] as of this encounter Visit Diagnoses Diagnosis Hypertension goal BP (blood pressure) < 140/90- Primary Unspecified essential hypertension Hypothyroidism Unspecified hypothyroidism Prediabetes Other abnormal glucose DYSLIPIDEMIA, GOAL TO BE DETERMINED Other and unspecified hyperlipidemia Encounter for screening mammogram for breast cancer Female stress incontinence Incomplete uterovaginal prolapse Uterovaginal prolapse, incomplete documented in this encounter Care Teams Chemical Lab Supervisor Relationship Specialty Start Date End Date Sylvester Arce MD [address] [place] [id number] PCP - General Family Medicine 04/03/22 documented as of this encounter
--- OUTSIDE RECORDS SUMMARY | 2023-05-30 02:54 | External Medical Summary | Summary of Care ---
Author Name Unknown Organization [facility] Address [address] [place] [address] Phone [phone] Care Team Providers Care Engraver Block Name Role Phone David Herman MD Primary Care Provider [phone] Reason for Visit * Reason Onset Date Comments Medication Refill 02/16/2023 Encounter Details Date Type Department Care Team (Late st Contact Info) Description 02/16/2023 Refill [facility] [address] [place], [place] [phone] David Herman MD [address] [place], [place] [phone] Gastroesophageal reflux disease, unspecified whether esophagitis present Allergies Active Allergy Reactions Criticality Noted Date Comments Bee Stings Edema airway High 12/24/2009 Ibuprofen 07/29/2004 itching Ragweed Wheezing 12/24/2009 documented as of this encounter (statuses as of 02/16/2023) Medications Medication Sig Dispensed Refills Start Date End Date Status EpiPen 2-Josiah 0.3 MG/0.3ML Injection Solution Auto-injector Inject into a large muscle. 0 Active Hydrocortisone (Perianal) 2.5 % External Cream (Anusol-HC) Administer into the rectum 2 times a day. 30 g 1 07/14/2022 Active Additional Information Patient not taking.Reported on 01/22/2023 TobraDex 0.3-0.1 % Ophthalmic Ointment (Tobramycin-Dexam ethasone) Instill into the left eye 3 times a day. 0 Active Premarin 0.625 MG/GM Vaginal Cream (Estrogens Conjugated)Indica tions:Vaginal atrophy Administer 1 g into the vagina [...] Omeprazole 20 MG Oral Capsule Delayed Release (PriLOSEC)Indicat ions:Gastroesopha geal reflux disease, unspecified whether esophagitis present Take 1 Capsule by mouth in the morning. 1 hour before the first meal of the day. 90 Capsule 3 02/16/2023 Active Omeprazole 20 MG Oral Capsule Delayed Release (PriLOSEC)Indicat ions:Gastroesopha geal reflux disease, unspecified whether esophagitis present Take 1 Capsule by mouth in the morning. 1 hour before the first meal of the day. 30 Capsule 5 01/22/2023 4 Discontinue d(Refill) documented as of this encounter (statuses as of 02/16/2023) Active Problems Problem Noted Date Diagnosed Date [...] as of this encounter (statuses as of 02/16/2023) Resolved Problems Problem Noted Date Diagnosed Date Resolved Date PURE HYPERCHOLESTEROLEM 01/09 Overview: Per Lipid Taxonomy. documented as of this encounter (statuses as of 02/16/2023) Social History Tobacco Use Types Packs/Day Years [...] encounter Miscellaneous Notes * Telephone Encounter - David Herman MD - 02/16/2023 2:26 PM ESTSigned Prescriptions: Disp Refills Omeprazole 20 MG Oral Capsule Delayed Rele*90 Cap*3 Sig: Take 1 Capsule by mouth in the morning. 1 hour before the first meal of the day. Authorizing Provider: DAVID HERMAN * Telephone Encounter - Michelle Gonzales MED ASSIST - 02/16/2023 10:56 AM EST Pharmacy requesting 90 day supply Pending Prescriptions: Disp Refills Omeprazole 20 MG Oral Capsule Delayed Rel*90 Cap*3 Sig: Take 1 Capsule by mouth in the morning. 1 hour before the first meal of the day. Last Visit: 01/22/2023 (in office), Visit date not found (telemedicine) Next Visit: 04/28/2023 Last date the medication was ordered: 01/22/23 Patient Active Problem List Diagnosis Code Allergic [...] I83.90 Vitamin D deficiency E55.9 Prediabetes R73.03 Labs: Lab Results Component Value Date/Time CREATININE - [facility] 0.7 05/15/2018 08:02 PM CREATININE-OUTSIDE LAB 0.8 12/09/2021 09:00 AM Lab Results Component Value Date/Time POTASSIUM - [facility] 4.2 05/15/2018 08:02 PM POTASSIUM-OU[facility]IDE LAB 4.4 12/09/2021 09:00 AM Lab Results Component Value Date/Time TSH - [facility] 0.45 03/25/2022 10:11 AM TSH - [facility] 2.28 04/06/2001 03:28 PM TSH - OUTSIDE LAB 0.42 (L) 03/06/2021 10:02 AM TSH REFLEX - OUTSIDE LAB 0.19 (L) 09/10/2021 08:53 AM Lab Results Component Value Date/Time LDL (DIRECT MEASURE)-OUTSIDE LAB 139 (H) 12/09/2021 09:00 AM LDL (DIRECT MEASURE)-OUTSIDE LAB 153 (H) 09/10/2021 08:53 AM LDL CHOLESTEROL (CALCULATED) - [facility] 139 (H) 03/25/2022 10:11 AM LDL CHOLESTEROL (CALCULATED) - [facility] 118 10/28/1999 08:57 AM Lab Results Component Value Date/Time ALT - [facility] 28 05/15/2018 08:02 PM ALT-OUTSIDE LAB 20 12/09/2021 09:00 AM Hemoglobin AIC Results: Lab Results Component Value Date/Time HEMOGLOBIN A1C - [facility] 5.8 (H) 03/25/2022 10:11 AM documented in this encounter Plan of Treatment Upcoming Encounters Date Type Department Care Team (Latest Contact Info) Description 03/12/2023 1:00 PM EST Imaging Radiology Mobile, [address] [address] 04/24/2023 8:20 AM EDT Laboratory Laboratory, [place] [address] [place] [address] [place], Lab [address] [place] [address] 04/28/2023 1:30 PM EDT Office Visit [facility] [address] [place] [address] Eugenia Santillan CRNP [address] [place] [phone] 05/13/2023 2:55 PM EDT Office Visit Urogynecology [facility] [address] [place] [address] Pau Fernandes CRNP [address] [place] [phone] Nurse Aimee Underwood [address] [place] [address] 05/21/2023 11:15 AM EDT Hospital Encounter [place], Operating Room, [facility] - 4th Floor [address] [place] [address] Jonathan Gannon MD [address] [place] [address] 05/21/2023 11:15 AM EDT - 05/21/2023 3:14 PM EDT Surgery OR [place], Operating Room, [facility] - 4th Floor [address] [place] [address] Jonathan Gannon MD [address] [place] [address] ROBOTIC LAPAROSCOPIC HYSTERECTOMY REMOVAL TUBES AND OVARIES FOR UTERUS 250GM OR LESS 07/01/2023 1:30 PM EDT Office Visit Urogynecology [facility] [address] [place] [address] Jonathan Gannon MD [address] [place] [address] Scheduled Procedures Name Priority Associated Diagnoses Date/Ti [...] as of this encounter Visit Diagnoses Diagnosis Gastroesophageal reflux disease, unspecified whether esophagitis present Female stress incontinence Incomplete uterovaginal prolapse Uterovaginal prolapse, incomplete documented in this encounter Care Teams Engraver Block Relationship Specialty Start Date End Date David Herman MD [address] [place] [id number] PCP - General Family Medicine 04/03/22 documented as of this encounter
--- OUTSIDE RECORDS SUMMARY | 2023-05-30 02:54 | External Medical Summary | Summary of Care ---
Author Name Unknown Organization [facility] Address [address] [place] [address] Phone [phone] Care Team Providers Care Bass Viol Repairer Name Role Phone Sylvester Arce MD Primary Care Provider [phone] Reason for Visit * Reason Comments Pessary Check Encounter Details Date Type Department Care Team (Late st Contact Info) Description 02/10/2023 11:05 AM EST Office Visit Urogynecology [facility] [address], [place] [phone] Pau Fernandes CRNP [address] [place] [address] Nurse Yasmine Urogyn [address] [place] [address] Uterovaginal prolapse, incomplete*; Vaginal atrophy; Pessary maintenance; Stress incontinence Allergies Active Allergy Reactions Criticality Noted Date [...] WITH DINNER 90 Tablet 1 02/03/2023 Active documented as of this encounter (statuses [...] 4 Q uit: 03/12/1980 Smokeless Tobacco: Never Tobacco Cessation:Counseling Given: Not Answered Alcohol Use Standard Drinks/Week Comments Yes 0 [...] Progress Notes * Pau Fernandes, ENZO - 02/10/2023 11:20 AM EST Angélica Harman presents for a pessary maintenance visit at [facility] Urogynecology [facility]. HPI: Patient was previously seen for UVP and SYLVESTER managed with #3 ring with support pessary and vaginal estrogen cream. Interval pessary, surgical repair with Dr. Gannon in May 2023. Pt reports she is doingwell overall. She is using the vaginal estrogen cream 2-3 times per week. Pessary is comfortable and fitting well. No [...] Solution Auto-injector Inject into a large muscle. Premarin 0.625 MG/GM Vaginal Cream (Estrogens Conjugated) Administer 1 g into the vagina once a dayon Thursday, Thursday, and Thursday only. At bedtime 42.5 g 6 Omeprazole 20 MG Oral Capsule Delayed Release (PriLOSEC) Take 1 Capsule by mouth in the morning. 1 hour before the first meal of the day. 30 Capsule 5 Pravastatin Sodium 40 MG Oral Tablet (Pravachol) TAKE 1 TABLET BY MOUTH EVERY DAY WITH DINNER 90 Tablet 1 Hydrocortisone (Perianal) 2.5 % External Cream (Anusol-HC) Administer into the rectum 2 times a day. (Patient not taking: Reported on 01/22/2023) 30 g 1 TobraDex 0.3-0.1 % Ophthalmic Ointment (Tobramycin-Dexamethasone) Instill into the left eye 3 timesa day. (Patient not taking: Reported on 10/15/2022) No current facility-administered medications for this visit. [...] discharge noted. #3 ring with support pessary removed, cleaned, and replaced. Tissue estrogenized with use of vaginal estrogen with no vaginal bleeding, lesions or erosions noted. Levator ani muscle strength 4 Bimanual: No masses or tenderness. Rectal: perianal area normal, anus normal Impression/Plan: This is a 62 year old female with UVP and SYLVESTER who is doing well on current treatment. Plan of care today includes Q3 month pessary care/removal pre surgery. Continue with vaginal estrogen cream 2-3x per week. Uterovaginal prolapse, incomplete (Primary) Vaginal atrophy Pessary maintenance Stress incontinence Follow Up: Return in about 3 months (around 05/12/2023) for Clinic Visit, Pessary maintenance. | For:Clinic Visit, Pessary maintenance Education: Continue use of vaginal estrogen cream [...] All questions were answered ENZO De León 02/10/2023 documented in this encounter Nursing Notes * Molly Bo RN - 02/10/2023 11:08 AM EST Patient presents to the clinic for a pessary check. She denies issues at this time. documented in this encounter Plan of Treatment Upcoming Encounters Date Type Department Care Team (Latest Contact Info) Description 03/12/2023 1:00 PM EST Imaging Radiology [place], [address] [address] 04/24/2023 8:20 AM EDT Laboratory Laboratory, [place] [address] [place] [phone] [place], Lab [address] [place] [address] 04/28/2023 1:30 PM EDT Office Visit [facility], [place] [address] [place] [address] Eugenia Santillan CRNP [address] [place] [address] 05/13/2023 2:55 PM EDT Office Visit Urogynecology [place] [address] [place] [address] Pua Fernandes CRNP [address] [place] [address] Nurse Yasmine [facility] [address] [place] [address] 05/21/2023 11:15 AM EDT Hospital Encounter [place], Operating Room, [facility] - 4th Floor [address] [place] [address] Jonathan Gannon MD [address] [place] [address] 05/21/2023 11:15 AM EDT - 05/21/2023 3:14 PM EDT Surgery OR [facility], Operating Room, [facility] - 4th Floor [address] [place] [address] Jonathan Gannon MD [address] [place] [address] ROBOTIC LAPAROSCOPIC HYSTERECTOMY REMOVAL TUBES AND OVARIES FOR UTERUS 250GM OR LESS 07/01/2023 1:30 PM EDT Office Visit Urogynecology [facility] [address] [place] [address] Jonathan Gannon MD [address] [place] [address] Scheduled Procedures Name Priority Associated Diagnoses Date/Ti ma ROBOTIC LAPAROSCOPIC HYSTERECTOMY REMOVAL TUBES AND OVARIES [...] Screening 04/03/2023 04/03/2022 Pap Smear 07/14/2025 07/14/2022, /2 10/2017, 12/24/2009, Additional history exists Lipid Panel 03/25/2027 03/25/2022, 1002/2021, 09/10/2021, Additional history exists Cervical Cancer Screening [...] maintenance Fitting and adjustment of other device Stress incontinence Female stress incontinence Female stress incontinence Incomplete uterovaginal prolapse Uterovaginal prolapse, incomplete documented in this encounter Care Teams Bass Viol Repairer Relationship Specialty Start Date End Date Sylvester Arce MD [address] [place] [address] PCP - General Family Medicine 04/03/22 documented as of this encounter"
--- OUTSIDE RECORDS SUMMARY | 2023-05-30 02:54 | External Medical Summary | Summary of Care ---
Author Name Unknown Organization [facility] Address [address] [place] [address] Phone [phone] Care Team Providers Care Moss Bleacher Name Role Phone Sylvester Arce MD Primary Care Provider [phone] Reason for Visit * Reason Comments Acute Nausea, starting beg inning of December Bloating Encounter Details Date Type Department Care Team (Latest Contact Info) Description 01/22/2023 10:20 AM EST Office Visit [facility] [address], [place] [id number] Eugenia Santillan CRNP [address] [place] [address] Gastroesophageal reflux disease, unspecified whether esophagitis present*; Belching Allergies Active Allergy Reactions Criticality Noted Date Comments Bee Stings Edema airway High 12/24/2009 Ibuprofen 07/29/2004 itching Ragweed Wheezing 12/24/2009 documented as of this encounter (statuses as of 01/22/2023) Medications Medication Sig Dispensed Refills Start Date [...] on 01/22/2023 TobraDex 0.3-0.1 % Ophthalmic Ointment (Tobramycin-Dexame thasone) [...] the day. 30 Capsule 5 01/22/2023 Active documented as of this encounter (statuses as of 01/22/2023) Active Problems Problem Noted Date Diagnosed Date [...] as of this encounter (statuses as of 01/22/2023) Resolved Problems Problem Noted Date Diagnosed Date Resolved Date PURE HYPERCHOLESTEROLEM 01/09 Overview: Per Lipid Taxonomy. documented as of this encounter (statuses as of 01/22/2023) Social History Tobacco Use Types Packs/Day Years [...] Sign Reading Time Taken Comments Blood Pressure 120/70 01/22/2023 10:25 AM EST Pulse 82 01/22/2023 10:25 AM EST Temperature 36.3 C (97.3 F) 01/22/2023 10:[address] Respiratory Rate - - Oxygen Saturation 98% 01/22/2023 10:25 AM EST Inhaled Oxygen Concentration - - Weight 66 kg (145 lb 9.6 oz) 01/22/2023 10:25 AM EST Height - - Body Mass Index 24.91 10/15/2022 12:20 PM EDT documented in this encounter Progress Notes * Eugenia Santillan CRNP - 01/22/2023 10:20 AM EST SUBJECTIVE: Angélica Hammer is a 62 year old female that presents for Acute (Nausea, starting beginning of December /Bloating) Last appt: 06/20/2022 Pt is new to me, seen today for acute visit, last seen 06/20/2022 Here for an acute visit. Started feeling nauseated in the beginning of December. Almost an every day occurrence. Also started with chest pain as well - refuses to get repeat stress tests. Has been burping more, has more gas. Bloating. One night had pizza, about a half hour later felt like she was going to get sick. Had BBQ one night, felt sick after this as well. Had diarrhea on - then had an episode of diarrhea two days later. Was going to keep food log and then didn't. Wondering if this is gallbladder problem or lactose. These symptoms seem to be worse about 30 minutes after most meals. Endorses eating smaller meals. Has taken priyanka for symptoms, this seemed to help. Peppermint has helped as well. Denies any blood in the stool or dark stools. No unintentional weight loss. No vomiting. Caffeine: 1 cup coffee Smoking: None Vaping: None Etoh: Wine - occasional Drug Use: No Sexually Active: Yes Concern for STD/STI: No Occupation: was warehouse assembly worker, elder care - overnight care. Health Maintenance Topic Date Due COVID-19 Vaccine (1) Never done HIV Screening Never done Hepatitis C Screening Never done DTaP,Tdap,and Td Vaccines (1 - Tdap) Never done Zoster Vaccines (1 of 2) Never done Influenza Vaccine (FLU shot) (1) Never done Mammogram 02/24/2023 HbA1c 03/25/2023 TSH 03/25/2023 Depression Screening 04/03/2023 Lipid Panel 03/25/2027 Cervical Cancer Screening 07/15/2027 Colorectal Cancer Screening 07/02/2032 Hepatitis B Aged Out MENINGOCOCCAL (MENACTRA/MENVEO) Aged Out GARDASIL-HPV IMMUNIZATION SERIES Aged Out Pneumococcal Vaccine: Pediatrics (0 to 5 Years) and At-Risk Patients (6 to 64 Years) Aged Out Review of Systems Constitutional: Negative. Negative for activity change, appetite change, chills, diaphoresis, fatigue, fever and unexpected weight change. HENT: Negative. Negative for hearing loss, postnasal drip, sinus pressure, sneezing and trouble swallowing. Eyes: Negative. Respiratory: Negative. Negative for choking, shortness of breath and stridor. Cardiovascular: Negative. Negative for chest pain, palpitations and leg swelling. Gastrointestinal: Positive for abdominal distention (bloating) and nausea. Negative for abdominal pain, anal bleeding, blood in stool, constipation, diarrhea, rectal pain and vomiting. Belching Endocrine: Negative. Genitourinary: Negative. Negative for difficulty urinating, dyspareunia and dysuria. Musculoskeletal: Negative. Skin: Negative. Negative for color change, pallor, rash and wound. Allergic/Immunologic: Negative. Neurological: Negative. Negative for dizziness, tremors, weakness and headaches. Psychiatric/Behavioral: Negative for agitation, behavioral problems, confusion, decreased concentration, dysphoric mood, hallucinations, self-injury, sleep disturbance and suicidal ideas. The patientis not nervous/anxious and is not hyperactive. Patient Active Problem List Diagnosis Code Allergic [...] ON AN EMPTY STOMACH 90 Tablet 1 Pravastatin Sodium 40 MG Oral Tablet (Pravachol) [...] meal of the day. 30 Capsule 5 EpiPen 2-Josiah 0.3 MG/0.3ML Injection Solution Auto-injector [...] Wheezing OBJECTIVE: Estimated body mass index is 24.91 kg/m as calculated from the following: Height as of 10/15/22: 1.628 m (5' 4.1"). Weight as of this encounter: 66 kg (145 lb 9.6 oz). Vitals: 01/22/23 1025 Temp: 36.3 C (97.3 F) Pulse: 82 SpO2: 98% BP: 120/70 BP Readings from Last 3 Encounters: 01/22/23 120/70 07/14/22 118/76 07/02/22 116/61 Wt Readings from Last 3 Encounters: 01/22/23 66 kg (145 lb 9.6 oz) 10/15/22 63.5 kg (140 lb) 07/14/22 63.5 kg (140 lb 1.6 oz) Physical Exam Vitals and nursing note reviewed. [...] heart sounds. No murmur heard. Pulmonary: Effort: No respiratory distress. Breath sounds: Normal breath sounds. No wheezing or rhonchi. Abdominal: General: Abdomen [...] Content: Thought content normal. Judgment: Judgment normal. ASSESSMENT/PLAN Gastroesophageal reflux disease, unspecified whether esophagitis present (Primary) - Omeprazole 20 MG Oral Capsule Delayed Release (PriLOSEC); Take 1 Capsule by mouth in the morning.1 hour before the first meal of the day. - Given that symptoms are worse after meals, seemingly higher fat content meals symptoms are suggestive of GERD. - Will trial omeprazole to aid with symptom control. - Discussed benefit of controlling acid reflux symptoms. - Discussed that ddx of cholelithiasis unlikely. - Encouraged to keep a food log as well. - If symptoms persist after avoidance of food triggers, can consider other studies in the future - EGD, RUQ ultrasound. - Abdominal examination unremarkable. Negative ortiz's sign. No acute abdominal pain. No rebound tenderness. - No concerning S&S that may be suggestive of PUD. Belching - If belching and abdominal bloating persist following tx with omeprazole can consider trial of simethicone as well. Anticipatory Guidance: Discussed below: Adult Anticipatory Guidance Ages 18 - 64 years: Diet: Encouraged a diet high in fruits, vegetables, grains and foliate supplementation. Limit sodium and fat content. Increase fiber and calcium intake. Exercise: Encouraged regular exercise including cardiovascular, resistance and strength training. I spent a total of 20-29 minutes (exact time 25 mins) on the date of service in preparation, delivery, and documentation of the care provided to Angélica Hammer excluding any time spent in the performance of separately billed services. Please note: Voice recognition software was used in the dictation of this note. Though I regularly review a progress note when I finish, I sometimes miss emergency vehicle dispatcher errors that might occur in the voice recognition which can result in erroneous words or sometimes odd combinations of words. -- ENZO Pr[place] [id number] documented in this encounter Nursing Notes * Kerry Kingston, Student - 01/22/2023 10:27 AM EST Nausea, starting beginning of December Bloating documented in this encounter Plan of Treatment Upcoming Encounters Date Type Department Care Team (Latest Contact Info) Description 02/10/2023 11:05 AM EST Office Visit Urogynecology [facility] [address] [place] [address] Pau Fernandes CRNP [address] [place] [address] Nurse Yasmine Urogyn [address] [place] [address] 03/12/2023 1:00 PM EST Imaging Radiology Mobile, [address] [address] 04/24/2023 8:20 AM EDT Laboratory Laboratory, [place] [address] [place] [phone] [facility] [address] [place] [address] 04/28/2023 1:30 PM EDT Office Visit Family Practice, [place] [address] [place] [address] Eugenia Santillan CRNP [address] [place] [phone] 05/21/2023 11:15 AM EDT Hospital Encounter OR GL, Operating Room, [facility] - 4th Floor [address] [place], [place] [address]SH[place] Ontiveros [address] Jonathan Gannon MD [address] [place] [address] 05/21/2023 11:15 AM EDT - 05/21/2023 3:14 PM EDT Surgery OR [facility]H, Operating Room, [facility] - 4th Floor [address] [place] [address] Jonathan Gannon MD [address] [place] [address] ROBOTIC LAPAROSCOPIC HYSTERECTOMY REMOVAL TUBES AND OVARIES FOR UTERUS 250GM OR LESS 06/02/2023 8:00 AM EDT Telemedicine Urogynecology [facility] [address] [place] [address] Jonathan Gannon MD [address] [place] [address] 07/01/2023 1:30 PM EDT Office Visit Urogynecology [facility] [address] [place] [address] Jonathan Gannon MD [address] [place] [address] Scheduled Procedures Name Priority Associated Diagnoses Date/Ti [...] Diagnosis Gastroesophageal reflux disease, unspecified whether esophagitis present- Primary Belching Flatulence, eructation, and gas pain Female stress incontinence Incomplete uterovaginal prolapse Uterovaginal prolapse, incomplete documented in this encounter Care Teams Moss Bleacher Relationship Specialty Start Date End Date Sylvester Arce MD [address] [place] [address] PCP - General Family Medicine 04/03/22 documented as of this encounter
[2023-05-30] MEDS: SIMETHICONE 80 MG CHEW PO PRN (03:11)
--- NOTE | 2023-05-30 06:01 | Electrocardiogram Report ---
Test Reason : Blood Pressure : / mmHG Vent. Rate : 064 BPM Atrial Rate : 064 BPM P-R Int : 110 ms QRS Dur : 080 ms QT Int : 410 ms P-R-T Axes : 033 065 053 degrees QTc Int : 422 ms Sinus rhythm Otherwise normal ECG No previous ECGs available Confirmed by Doron Rudd ([id number]) on 05/30/2023 6:01:20 AM Referred By: Jonathan Gannon Confirmed By:Saeid Rudd
[2023-05-30 06:46] LABS: Basophils # (auto) 0.02 K/uL (0.00-0.20); Basophils % (auto) 0.2 %; Eosinophils # (auto) 0.01 K/uL (0.00-0.50); Eosinophils % (auto) 0.1 %; Hematocrit (blood only) 36.2 % (37.0-47.0); Hemoglobin 12.2 g/dl (12.0-16.0); Immature Granulocytes # (auto) 0.04 K/uL (0.01-0.20); Immature Granulocytes % (auto) 0.4 %; Lymphocytes # (auto) 2.86 K/uL (1.20-3.40); Lymphocytes % (auto) 27.7 %; Mean Corpuscular Hemoglobin 28.7 pg (25.0-34.0); Mean Corpuscular Hgb Conc 33.7 g/dL (32.0-36.0); Mean Corpuscular Volume 85.2 fL (80.0-100.0); Mean Platelet Volume 9.8 fL (9.4-12.4); Monocytes # (auto) 0.95 K/uL (0.11-0.59); Monocytes % (auto) 9.2 %; Neutrophils # (auto) 6.43 K/uL (1.40-6.50); Neutrophils % (auto) 62.4 %; Platelet Count 219 K/uL (130-400); RDW Coefficient of Variation 14.6 % (11.5-14.5); RDW Standard Deviation 45.7 fL (36.4-46.3); Red Blood Count 4.25 M/uL (4.20-5.40); White Blood Count 10.31 K/ul (4.8-10.8)
[2023-05-30 07:07] LABS: BUN Creatinine Ratio 16.4 (10-20); Calcium 8.6 mg/dl (8.6-10.3); Creatinine Clr Calc Pharmacy 67.2 ml/min; Est GFR (African American) 100.9 ml/min; Potassium 3.9 mmol/L (3.5-5.1)
[2023-05-30] MEDS: LEVOTHYROXINE SODIUM 88 MCG TABLET PO STA (08:12)
[2023-05-30] MEDS: ACETAMINOPHEN 325 MG TAB PO PRN (08:17)
--- NOTE | 2023-05-30 08:46 | Gynecologic Progress Note ---
Date of Service May 30, 2023 Assessment & Plan (1) Uterovaginal prolapse, incomplete: Plan: POD#1. Patient is ready for discharge. Post op instructions reviewed. All questions answered. Present on Admission?: Yes Admission and Anticipated Discharge Date Admission Date: May 29, 2023 Anticipated date of discharge: 05/30/23 Subjective Feeling well. Denies SOB, CP, N/V. Pain well controlled. Physical Exam 2 Constitutional: WD/WN, vitals as above Eyes: PERRL, conjunctivae normal, anicteric sclerae Neck: trachea midline, no thyromegaly Respiratory: normal respiratory effort Cardiovascular: Rate/Rhythm: regular rate Gastrointestinal (Abdomen): Inspection/Auscultation: abdomen normal to inspection Percussion/Palpation: abdomen soft Musculoskeletal: Extremities: extremities normal to inspection Non tender calves Skin: no rashes, warm and dry Psychiatric: A+Ox3, euthymic affect Genitourinary: vaginal packing removed, dry Results & Data Vital Signs (Past 12 Hours) Vital Signs Temp Pulse Resp BP Pulse Ox O2 Del Method 05/30/23 03:28 37.2 C 66 16 106/63 94 Room Air 05/29/23 23:25 36.7 C 69 18 106/65 98 Room Air Laboratory Results CBC, BMP reviewed
--- NOTE | 2023-05-30 08:53 | Discharge Summary ---
Date of Service May 30, 2023 Admission HPI Per Admitting Provider Angélica Hammer is a 62 year old woman who complains of a vaginal bulge for the past year. The bulge is more noticeable after being on her feet for long periods of time or when exercising. Here for Robotic hysterectomy, bso, sacral colpopexy, cystoscopy Admission Exam (Per Admitting) Constitutional WD/WN, vitals as above Eyes PERRL, conjunctivae normal, anicteric sclerae Neck trachea midline, no thyromegaly Respiratory normal respiratory effort, lungs clear to auscultation normal respiratory effort Cardiovascular RRR, no murmur, no edema Rate/Rhythm: regular rate Gastrointestinal (Abdomen) normal bowel sounds, soft, nontender, no hepatosplenomegaly Inspection/Auscultation: abdomen normal to inspection Percussion/Palpation: abdomen soft Musculoskeletal no cyanosis or clubbing, extremities motor strength 5/5 Extremities: extremities normal to inspection Skin no rashes, warm and dry Psychiatric A+Ox3, euthymic affect Discharge Data Procedures Performed Operation Date: 05/29/23 10:10 Actual Procedures p Robotic laparoscopic removal of the uterus, cervix, bilateral fallopian tubes and ovaries with Robotic SacroColpopexy and Cystoscopy(Not Applicable) - Jonathan Gannon MD Hospital Course (1) Uterovaginal prolapse, incomplete: POD#1. Patient is ready for discharge. Post op instructions reviewed. All questions answered.
--- OUTSIDE RECORDS SUMMARY | 2023-05-30 17:57 | External Medical Summary | Summary of Care ---
Author Name Unknown Organization [facility] Address [address] [place] [address] Phone [phone] Care Team Providers Care Fly Worker Name Role Phone Sylvester Arce MD Primary Care Provider [phone] Encounter Details Date Type Department Care Team ([facility] st Contact Info) Description 05/29/2023 Result Scan Unspecified Department <No scans attached> Allergies Active Allergy Reactions Criticality Noted Date Comments Bee Stings Edema airway High 12/24/2009 Ibuprofen 07/29/2004 itching Ragweed Wheezing 12/24/2009 documented as of this encounter (statuses as of 05/29/2023) Medications Medication Sig Dispensed Refills Start Date End Date Status EpiPen 2-Josiah 0.3 MG/0.3ML Injection Solution Auto-injector Inject into a large muscle. 0 Active Omeprazole 20 MG Oral Capsule Delayed Release (PriLOSEC)Indication s:Gastroesophageal reflux disease, unspecified whether esophagitis present Take 1 Capsule by mouth in the morning. 1 hour before the first meal of the day. 90 Capsule 3 02/16/2023 Active Additional Information Patient not taking.Reported on 05/26/2023 Ezetimibe 10 MG Oral Tablet (Zetia)Indications:R outine history and physical examination of adult,Mixed hyperlipidemia Take 1 Tablet by mouth every afternoon. 90 Tablet 3 04/28/2023 Active Levothyroxine Sodium 88 MCG Oral Tablet (Levoxyl) TAKE 1 TABLET BY MOUTH EVERY DAY ON AN EMPTY STOMACH 90 Tablet 3 05/11/2023 Active Premarin 0.625 MG/GM Vaginal Cream (Estrogens Conjugated)Indicatio ns:Vaginal atrophy Administer 1 g into the vagina once a day on Thursday, Thursday, and Thursday only. At bedtime 42.5 g 6 05/27/2023 Active documented as of this encounter (statuses as of 05/29/2023) Active Problems Problem Noted Date Diagnosed Date [...] as of this encounter (statuses as of 05/29/2023) Resolved Problems Problem Noted Date Diagnosed Date Resolved Date PURE HYPERCHOLESTEROLEM 01/09 Overview: Per Lipid Taxonomy. documented as of this encounter (statuses as of 05/29/2023) Social History Tobacco Use Types Packs/Day Years [...] money to buy more. Never true 07/15/19 23 Within the past 12 months, t he [...] Description 06/10/2023 8:00 AM EDT Telemedicine [facility] [address] [facility] [address] Jonathan Gannon MD [address] [place] [address] 07/01/2023 1:30 PM EDT Office Visit Urogynecology [facility] [address] [facility] [place] [address] Jonathan Gannon MD [address] [place] [address] 11/17/2023 10:00 AM EDT Office Visit [facility] [address] [place] [address] Eugenia Santillan, ENZO [address] [place] [phone] Health Maintenance Due Date Last Done Comments HIV Screening 1973 Hepatitis C Screening 1976 DTaP,Tdap,and Td Vaccines (1 - Tdap) 1977 Cologuard 11/17/2003 Sigmoidoscopy 11/17/2003 Zoster Vaccines (1 of 2) 2008 Fecal Occult Blood Test 12/24/2010 12/25/19 10, 07/26/2008, 05/24/2007 COVID-19 Vaccine ( season) 2022 Depression Screening 04/03/2023 04/03/2022 Influenza [...] Not on filedocumented as of this encounter Procedures Procedure Name Priority Date/Time Associated Diagnosis Comments OUTSIDE LAB RESULTS 05/29/2023 documented in this encounter Results * OUTSIDE LAB RESULTS (05/29/2023) 05/29/2023 No Physician Data Unknown LABORATORY documented in this encounter Care Teams Fly Worker Relationship Specialty Start Date End Date Sylvester Arce MD [address] [place] [id number] PCP - General Family Medicine 04/03/22 documented as of this encounter
== END 2023-05-30 11:56 | disposition home or self-care (01) ==
LOC: ASU 08:29 → PACUINP 08:29 → 4E2 19:53